=== PATIENT | male | born 1945 | race Caucasian/White ===

== ENCOUNTER 2017-04-16 01:14 | Observation (INO) ==
[2017-04-16] MEDS ORDERED: methylPREDNISolone 125 MG/2 ML VIAL IVP ONE (01:16)
[2017-04-16] MEDS ORDERED: Ipratropium/Albuterol Neb 3 ML IH ONE (01:16)
--- NOTE | 2017-04-16 01:23 | Emergency Department Note ---
Disposition Clinical Impression: Elevated troponin, Tobacco use COPD (chronic obstructive pulmonary disease) Qualifiers: COPD type: unspecified COPD Qualified Code(s): J44.9 - Chronic obstructive pulmonary disease, unspecified Disposition: Admitted As Inpatient Condition: Fair Referrals: Keke Romeo CNP [Primary Care Provider] - Forms: ED Satisfaction Letter Time of Disposition: 02:08 SOB HPI - General Chief Complaint: ED Shortness of Breath/Dyspnea Stated Complaint: alcides Time Seen by Provider: 04/16/17 01:16 Source: patient, EMS Mode of arrival: EMS Limitations: no limitations Nursing Notes Reviewed: Yes Vital Signs Reviewed: Yes - History of Present Illness 71-year-old male history of smoking, ACS presents for evaluation of dyspnea. Patient notes even increasing dyspnea over the past 2-3 days. Denies any fevers. Does note a productive cough for the past 2 weeks. Patient denies any chest pain. No abdominal pain. No nausea or vomiting. The patient states he does not have inhalers at home. Patient is not oxygen dependent home. Per EMS the patient was 82% on room air and improved to 91% with 1 breathing treatment. No oxygen at home. - Related Data Allergies Allergy/AdvReac Type Severity Reaction Status Date / Time No Known Allergies Allergy Verified 10/01/15 13:54 All systems ED: reviewed and negative except as stated. Constitutional: Reports: as per HPI. Denies: fever Eyes: Reports: as per HPI ENT ED: Reports: as per HPI Cardiovascular: Reports: as per HPI. Denies: chest pain Respiratory: Reports: as per HPI, cough, dyspnea, sputum production Gastrointestinal: Reports: as per HPI. Denies: abdominal pain, nausea, vomiting Genitourinary: Reports: as per HPI Musculoskeletal: Reports: as per HPI Integumentary: Reports: as per HPI Neurological: Reports: as per HPI Psychiatric: Reports: as per HPI Endocrine: Reports: as per HPI Past Medical History - Past Medical History Source: patient Medical history: Reports: hypertension, myocardial infarction Psychiatric history: Reports: no psych history - Social History Smoking Status: Current every day smoker Smokeless Tobacco Status: No Alcohol use: Reports: none Drug use: Reports: none Physical Exam - General Limitations: no limitations General appearance: alert, other (Moderate distress) - Head Head exam: atraumatic, normocephalic, normal inspection - Eye Eye exam: Present: normal appearance, PERRL, EOMI - ENT ENT exam: normal exam, normal oropharynx, mucous membranes moist - Neck Neck exam: Present: normal inspection, full ROM, trachea midline - Chest Chest inspection: Present: normal inspection, symmetric chest wall rise. Absent : tenderness - Respiratory Respiratory exam: Present: accessory muscle use, prolonged expiratory phase, other (Diffusely diminished breath sounds) - Cardiovascular Cardiovascular exam: Present: regular rate, normal rhythm. Absent: systolic murmur - Abdominal Exam Abdominal exam: Present: soft, Non-Tender - Extremities Exam Extremities exam: Present: normal inspection. Absent: pedal edema - Neurological Exam Neurological exam: Present: alert, oriented X3 - Skin Skin exam: Present: warm, dry, intact, normal color Course Course Narrative: Patient seen and examined. Patient appears to be in moderate distress. Patient will get breathing treatments basic labs and EKG. - Reevaluation(s) Reevaluation #1: Patient's seen and reevaluated. Patient's breathing has improved. Patient's noted to have high blood pressure states that he takes carvedilol to help manage his blood pressure. Time: 01:49 Reevaluation #2: Patient's blood pressure improved from initial set of vitals. Patient's blood pressure is 157/96. Patient resting comfortably. Time: 02:04 Reevaluation #3: Spoke with hospitalist who requested a blood culture. Time: 02:48 Vital Signs Temperature 99.7 F H 04/16/17 01:15 Pulse Rate 81 04/16/17 01:15 Respiratory Rate 24 04/16/17 01:15 Blood Pressure 203/127 04/16/17 01:15 O2 Sat by Pulse Oximetry 96 04/16/17 01:15 Temperature 99.7 F H 04/16/17 01:15 Pulse Rate 77 04/16/17 02:10 Respiratory Rate 20 04/16/17 02:10 Blood Pressure 157/96 04/16/17 02:10 O2 Sat by Pulse Oximetry 92 04/16/17 02:10 Oxygen Delivery Oxygen Delivery Nasal Cannula Shortness of Breath/Dyspnea - MDM Narrative Medical decision making narrative: 71-year-old male with a history of tobacco use presents for evaluation of dyspnea. Since symptoms are most likely consistent with a COPD exacerbation. Patient typically is our reduction home. Patient denies any fevers but does note dyspnea with productive cough. Patient was hypoxic with room air sat of 82 %. The patient did improve with oxygen supplementation as well as nebs. Patient's requiring 2-3 L to maintain saturations in the mid 90s. Patient was given triple nebs as well as IV steroids. Patient's chest x-ray shows findings consistent with COPD as well as a possible developing pneumonia in the left lung base. Given the patient's symptoms he will be admitted to the hospitalist for further respiratory support management. Patient was given IV Levaquin given the chest x-ray findings. Patient did have an elevated troponin which is likely related to the patient's increased work of breathing. Patient's been denying chest pain. Patient was given aspirin given the troponin elevation. - Lab Data Lab results reviewed: Yes I reviewed the patient's lab results. Result diagrams: 04/16/17 01:25 04/16/17 01:25 Lab Results 04/16/17 04/16/17 04/16/17 Range/Units 01:25 01:25 01:25 WBC 10.7 (4.3-11.1) K/mcL RBC 5.36 (4.19-5.50) M/mcL Hgb 16.8 (12.9-16.9) g/dL Hct 49.7 (37.5-50.1) % MCV 92.7 (83.0-100.0) fL MCH 31.3 (28.0-33.3) pg MCHC 33.8 (31.6-35.5) g/dL RDW 13.6 (11.5-14.5) % Plt Count 143 (140-400) K/mcL MPV 10.5 (9.4-12.4) fL Immature Gran % 0.5 (0-4) % Seg Neutrophils % 78.5 % Lymphocytes % 11.7 % Monocytes % 8.8 % Eosinophils % 0.1 % Basophils % 0.4 % Neutrophils # 8.4 (1.6-8.9) K/mcL Lymphocytes # 1.3 (0.6-4.6) K/mcL Monocytes # 0.9 (0.0-1.3) K/mcL Eosinophils # 0.0 (0.0-0.6) K/mcL Basophils # 0.0 (0.0-0.2) K/mcL Reactive Lymphocytes Present A (Not Present) Platelet Estimate Normal (Normal) Large Platelets Present A (Not Present) Sodium 133 L (136-145) mEq/L Potassium 4.2 (3.5-5.1) mEq/L Chloride 100 (98-107) mEq/L Carbon Dioxide 24 (23-29) mEq/L BUN 28 H (8-23) mg/dL Creatinine 1.27 (0.70-1.30) mg/dL Est GFR ( Amer) > 60 (> 60) Est GFR (Non-Af Amer) 56 L (> 60) BUN/Creatinine Ratio 22 (6-26) Glucose 140 H (70-105) mg/dL Calculated Osmolality 284 (280-300) Calcium 8.8 (8.6-10.3) mg/dL Troponin I 0.04 H* (< 0.04) ng/mL B-Natriuretic Peptide (Less than 100) pg/mL 04/16/17 Range/Units 01:25 WBC (4.3-11.1) K/mcL RBC (4.19-5.50) M/mcL Hgb (12.9-16.9) g/dL Hct (37.5-50.1) % MCV (83.0-100.0) fL MCH (28.0-33.3) pg MCHC (31.6-35.5) g/dL RDW (11.5-14.5) % Plt Count (140-400) K/mcL MPV (9.4-12.4) fL Immature Gran % (0-4) % Seg Neutrophils % % Lymphocytes % % Monocytes % % Eosinophils % % Basophils % % Neutrophils # (1.6-8.9) K/mcL Lymphocytes # (0.6-4.6) K/mcL Monocytes # (0.0-1.3) K/mcL Eosinophils # (0.0-0.6) K/mcL Basophils # (0.0-0.2) K/mcL Reactive Lymphocytes (Not Present) Platelet Estimate (Normal) Large Platelets (Not Present) Sodium (136-145) mEq/L Potassium (3.5-5.1) mEq/L Chloride (98-107) mEq/L Carbon Dioxide (23-29) mEq/L BUN (8-23) mg/dL Creatinine (0.70-1.30) mg/dL Est GFR ( Amer) (> 60) Est GFR (Non-Af Amer) (> 60) BUN/Creatinine Ratio (6-26) Glucose (70-105) mg/dL Calculated Osmolality (280-300) Calcium (8.6-10.3) mg/dL Troponin I (< 0.04) ng/mL B-Natriuretic Peptide 409 H (Less than 100) pg/mL - Radiology Data Radiology results reviewed: Yes I reviewed the patient's radiology results. Chest X-Ray 04/16/17 01:16 IMPRESSION: Emphysema with features of smoking-related obstructive small airways disease. Patchy opacities at the left lung base could reflect developing pneumonia or aspiration. D/ / Faustino De Oliveira / Faustino De Oliveira Interpreting Provider: Faustino De Oliveira - EKG Data EKG attestation: Yes I reviewed and interpreted this EKG. EKG shows normal: Reports: sinus rhythm Rate: Reports: normal Rhythm: Reports: NSR [place]/QRS: Reports: normal Voltage: Reports: increased voltage throughout Q waves: Reports: v1 T wave inversions noted in: Reports: II, III, aVF Interpretation: Reports: no acute changes, unchanged when compared to prior tracing (date) S.B.AJacey - [place] Situation: Demographics Background: Presenting Complaint Assessment: Vital Signs, Course and respsone to treatment, Patient/Family Expectation Recommendation: Barrier(s) to disposition, Recommendation based on pending studies, treatments, or consults S.B.AJacey Report Given to: Dr. Linda Mohamud Repor Time: 02:48 Attestation Statement - Attestation Attestation: I, Troy Zapata MD, personally evaluated this patient and discussed their management with the resident physician. I reviewed the resident's note and agree with the documented findings, medical decision making, and plan of care. 71-year-old male presents to the emergency department with a complaint of an increasing cough with clear sputum production over the past few weeks. Over the past several days he has had increasing shortness of breath. He has not noticed any fever. No chest pain. Patient is a smoker and continues to smoke. He states he has never actually been diagnosed with COPD but assumes that he has it. He is not on any home oxygen, nebulizers or inhalers. On examination patient is a well-developed thin elderly male in moderate rest or distress on arrival. He is alert and oriented 3. There is no cyanosis or diaphoresis. Breath sounds are decreased bilaterally. No definite wheezes. I initially thought I heard a few rales in the left base but on reexamination these have cleared. Heart is regular rate and rhythm. Abdomen is soft and nontender with normal bowel sounds. No pedal edema. Labs reviewed. Chest x-ray shows patchy opacities at the left lung base which could reflect developing pneumonia or aspiration. EKG shows a normal sinus rhythm with a heart rate of 83, no acute ST segment elevation or depression noted. The hospitalist, Dr. Mckeon, was consulted and accepted admission of the patient.
[2017-04-16 01:33] LABS: Basophils % 0.4 %; Eosinophils % 0.1 %; Hematocrit 49.7 % (37.5-50.1); Hemoglobin 16.8 g/dL (12.9-16.9); Immature Granulocytes % 0.5 % (0-4); Lymphocytes # 1.3 K/mcL (0.6-4.6); Lymphocytes % 11.7 %; Mean Corpuscular HGB Conc 33.8 g/dL (31.6-35.5); Mean Corpuscular Hemoglobin 31.3 pg (28.0-33.3); Mean Corpuscular Volume 92.7 fL (83.0-100.0); Mean Platelet Volume 10.5 fL (9.4-12.4); Monocytes # 0.9 K/mcL (0.0-1.3); Monocytes % 8.8 %; Neutrophils # 8.4 K/mcL (1.6-8.9); Platelet Count 143 K/mcL (140-400); Red Blood Count 5.36 M/mcL (4.19-5.50); Red Cell Distribution Width 13.6 % (11.5-14.5); Segmented Neutrophils % 78.5 %
[2017-04-16 01:47] LABS: BUN/Creatinine Ratio 22 (6-26); Blood Urea Nitrogen 28 mg/dL (8-23); Calcium 8.8 mg/dL (8.6-10.3); Carbon Dioxide 24 mEq/L (23-29); Chloride 100 mEq/L (98-107); Glucose 140 mg/dL (70-105); Osmolality,Calculated 284 (280-300); Potassium 4.2 mEq/L (3.5-5.1); Sodium 133 mEq/L (136-145); eGFR For African Americans > 60 (> 60); eGFR For Non-African Americans 56 (> 60)
[2017-04-16 01:52] LABS: Large Platelets Present (Not Present); Platelet Estimate Normal (Normal); Reactive Lymphocytes Present (Not Present)
[2017-04-16] MEDS ORDERED: Aspirin 81 MG TAB.CHEW PO ONE (02:00)
[2017-04-16] MEDS ORDERED: Levofloxacin 750 MG/150 ML 750 MG/150 ML BAG IVPB ONE (02:01)
--- NOTE | 2017-04-16 03:57 | Internal Med History&Physical ---
Addendum entered and electronically signed by Sonu Dale DO 04/16/17 06:14: Diagnosis (3) should read "Respiratory Distress" rather than ARDS Original Note: <Sonu Dale - Last Filed: 04/16/17 05:24> Date of Encounter: 04/16/17 Time of Encounter: 03:53 Assessment and Plan (1) Community acquired pneumonia Current visit: Yes Status: Acute Possible early lobar pneumonia based on X-ray findings Will obtain respiratory illness panel Neb treatments ordered PRN; patient on supplementary O2 with continuous pulse ox monitoring Will order Mucinex and start solumedrol PO Levaquin 750Mg for total of 5-7 days Qualifiers: Laterality: unspecified laterality Qualified Code(s): J18.9 - Pneumonia, unspecified organism (2) COPD exacerbation Current visit: Yes Status: Acute based on smoking history, present illness, and exam findings, likely underlying COPD with no formal diagnosis plans as above (3) Acute respiratory distress syndrome in adult Current visit: Yes Status: Acute Due to COPD Exacerbation / CAP Plan as above (4) Elevated brain natriuretic peptide (BNP) level Current visit: Yes Status: Acute Based on cardiac history and acute shortness of air, may be some component of current/underlying CHF Will obtain 2D ECHO to assess LVEF, wall function, and valve function Hold diuresis for now as CHF does not seem to be the primary stimulus for presenting symptoms Will start on appropriate diet (5) Elevated troponin Current visit: Yes Status: Acute No chest pain or symptomatic ACS equivalents Borderline elevation, likely demand ischemia will recheck troponin at 0800 (6) Hyperglycemia Current visit: Yes Status: Acute Mild -- 140 possible elevation secondary to steroid rx will obtain A1C to assess for / rule out possible underlying DM (7) Tobacco use Current visit: Yes Status: Acute Extensive history, but patient states smokes 3 cigarettes a day Offer patch if needed (8) DVT prophylaxis Current visit: Yes Status: Acute Ambulate with assistance Subq heparin Internal Medicine - H&P: HPI Admitted From: Emergency Dept Plans for Post Hospital Care: Home History of present illness: Mr. Bianchi is a 71 year old male admitted by the emergency department for acute pulmonary illness likely exacerbation of COPD. Of note, patient does not have any known history of COPD, however, has extensive history of tobacco use citing 30 to 40 years of 2 pack a day smoking habit. Over the past 2 weeks, patient states he is coughing more than usual and producing clear to off-white sputum. Patient called the ambulance and came to the ER today after he is having a hard time walking from his living room to his kitchen becoming extremely short of breath while walking. Per EMS, desaturated to 82% prior to initial breathing treatment which immediately improved to the low 90s. Patient does have history of CAD and follows with [facility]; states had OK in 2010 with cath, but no stent. Denies any knowledge of diagnosed lung pathology or CHF. Patient has not had any headaches, lightheadedness, fevers, chills, sweats, retrosternal chest pain, nausea, vomiting, leg swelling, or any skin color change. Denies sick contacts; lives alone. Past Med Surg Social Fam HX - Past Medical History Attestation: Yes The following information was validated with the patient. Source: patient Medical history: COPD (Never formally diagnosed), hypertension, myocardial infarction (2010) Psychiatric history: anxiety, depression - Social History Smoking Status: Current every day smoker Packs per day: 1 Smokeless Tobacco Status: No Alcohol use: none Drug use: none Internal Medicine - H&P: Meds Aspirin [Lo-Dose Aspirin EC] 81 mg PO DAILY 04/16/17 [History] Atorvastatin [Lipitor] 40 mg PO HS 04/16/17 [History] Carvedilol [Coreg] 6.25 mg PO BIDWM 04/16/17 [History] Escitalopram [Lexapro] 5 mg PO DAILY 04/16/17 [History] Montelukast [Singulair] 10 mg PO DAILY 04/16/17 [History] Nitroglycerin [Nitrostat] 0.4 mg SL PRN PRN 04/16/17 [History] Triamcinolone Acetonide [Nasacort] 10.8 ml NS DAILY 04/16/17 [History] 3 Allergy/AdvReac Type Severity Reaction Status Date / Time No Known Allergies Allergy Verified 10/01/15 13:54 All Systems PM: A 10-system review of systems was performed and is negative for pertinent findings except as documented above in the HPI. Review of systems: As per HPI - Constitutional Vitals: Temp Pulse Resp BP Pulse Ox 98.5 F 73 19 116/69 92 04/16/17 03:46 04/16/17 03:46 04/16/17 03:46 04/16/17 03:46 04/16/17 03:46 Exam: CONSTITUTIONAL: Alert and oriented X3, well-nourished, well appearing, in no apparent distress HEAD: Normocephalic; atraumatic. EYES: PERRL, no scleral icterus, no drainage, no conjunctival injection NOSE: The nose is normal in appearance without rhinorrhea Oropharynx: pink/moist, no tonsillar edema/erythema/exudates RESP: conversational without any apparent respiratory distress on 2 L via nasal cannula. Expiratory wheezes heard throughout lung dailey. No stridor, rales, rhonchi heard. CARD: heart sounds distant, but regular without murmurs or gallops ABD: grossly normal, soft, non-tender SKIN: normal appearance, no pallor/diaphoresis,mottling,jaundice,cyanosis EXT: no significant edema; DP pulses 2+ and symmetrical PSYCH: appropriate mood/affect Internal Med - H&P Results - Labs CBC & Chem 7: 04/16/17 01:25 04/16/17 01:25 <Aisha Mckeon - Last Filed: 04/16/17 06:26> Date of Encounter: 04/16/17 Internal Medicine - H&P: HPI History of present illness: Mr. Bianchi is a 71 year old male All Systems PM: A 10-system review of systems was performed and is negative for pertinent findings except as documented above in the HPI. - Constitutional Vitals: Temp Pulse Resp BP Pulse Ox 98.5 F 73 19 116/69 92 04/16/17 03:46 04/16/17 03:46 04/16/17 03:46 04/16/17 03:46 04/16/17 03:46 Internal Med - H&P Results - Labs CBC & Chem 7: 04/16/17 01:25 04/16/17 01:25 - Attending Attestation Patient is a 71y/o male admitted for acute respiratory distress secondary to PNA and COPD exacerbation Pt independently seen and examined at bedside. Reports of feeling better since hospitalization. Currently saturating well on nasal cannula. Reports of not being on home oxygen. Pt has never been diagnosed with COPD, however has been smoking for over 40years and stopped smoking a couple of days ago because of respiratory distress. Will continue IV steroids, abx, bronchodilator support Consider pulmonology referral upon discharge and discharging the patient on bronchodilator/O2 support Mild elevation in TNI likely demand ischemia, will obtain 2D echo and trend TNI Smoking cessation counseling provided Case discussed with Resident physician Sonu Dale, I agree with his documented findings, assessment, and plan except as listed above.
[2017-04-16] MEDS ORDERED: Ondansetron ODT 4 MG TAB.RAPDIS SL PRN (04:17)
[2017-04-16] MEDS ORDERED: Acetaminophen 325 MG TABLET PO PRN (04:17)
[2017-04-16] MEDS ORDERED: Naloxone 0.4 MG/ML INJ IVP PRN (04:17)
[2017-04-16] MEDS ORDERED: Albuterol 2.5 MG/3 ML NEBULIZER IH PRN (04:39)
[2017-04-16] MEDS ORDERED: Ipratropium/Albuterol Neb 3 ML IH PRN (04:39)
[2017-04-16] MEDS ORDERED: Nitroglycerin 0.4 MG TAB.SUBL SL PRN (04:55)
[2017-04-16] MEDS: *HR* Heparin 5,000 UNIT/ML VIAL SQ SCH ×2 (05:59→16:53)
[2017-04-16 08:43] LABS: Hemoglobin A1C 5.5 %
[2017-04-16] MEDS: MethylPREDNISolone 40 MG/ML VIAL IVP SCH ×2 (09:46→16:54)
[2017-04-16] MEDS: Aspirin Enteric Coated 81 MG Tablet PO SCH (09:46)
[2017-04-16] MEDS: Fluticasone Propionate Nasal 50 MCG/SPRAY BOTTLE NS SCH (09:48)
--- NOTE | 2017-04-16 13:58 | Electrocardiograph Report ---
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
--- NOTE | 2017-04-16 17:25 | Internal Med Progress Note ---
Date of Encounter: 04/16/17 Time of Encounter: 11:10 - Assessment and plan (1) Community acquired pneumonia Current Visit: Yes Status: Acute Assessment and plan: Patient presents with to 3 week history of dyspnea on exertion. It became worse last night when he states he was unable to catch his breath and came to the emergency department. He denies subjective fever or chills at home. Productive cough with clear sputum noted. Patient does not worsen to here, he is requiring supplemental oxygen secondary to the pneumonia, possibly CHF exacerbation. wheezing heard in the posterior lung dailey. Patient appears to have mild conversational dyspnea. Patient has been placed on Levaquin 750 mg by mouth daily for 5-7 days. Continue Mucinex and start Solu-Medrol IV. DuoNeb and oxygen as needed to maintain sats greater than 92%. Chest X-Ray 04/16/17 01:16 IMPRESSION: Emphysema with features of smoking-related obstructive small airways disease. Patchy opacities at the left lung base could reflect developing pneumonia or aspiration. D/ / Faustino De Oliveira / Faustino De Oliveira Interpreting Provider: Faustino De Oliveira Echocardiogram 04/16/17 04:57 Impressions: LVEF 35%. Moderate global LV systolic dysfunction. Mild left ventricular diastolic dysfunction. Mildly dilated RV with moderate to severely reduced function. Mild mitral regurgitation. Mild tricuspid regurgitation. Mild pulmonary hypertension. Qualifiers: Laterality: unspecified laterality Qualified Code(s): J18.9 - Pneumonia, unspecified organism (2) Acute respiratory failure Current Visit: Yes Status: Acute Assessment and plan: Patient requiring supplemental oxygen secondary to a community acquired pneumonia, COPD exacerbation. Continue oxygen as needed to maintain sats greater than 92%. Patient may need to qualify for O2 at home. Qualifiers: Respiratory failure complication: unspecified whether with hypoxia or hypercapnia Qualified Code(s): J96.00 - Acute respiratory failure, unspecified whether with hypoxia or hypercapnia (3) Tobacco use Current Visit: Yes Status: Chronic Assessment and plan: Patient reports he is trying to quit smoking. Smoking cessation counseling has been completed. Patient denies need for nicotine replacement therapy, nicotine patch ordered when necessary. (4) Elevated brain natriuretic peptide (BNP) level Current Visit: Yes Status: Acute Assessment and plan: Prior [place] with stent placement in 2010. Patient denies known history of congestive heart failure. Lungs with wheezing in posterior lung dailey, no Rales noted. No peripheral edema noted. Echocardiogram today showed LVEF of 35% with moderate global LV systolic function, mild LV DD, mildly dilated RV with moderate to severely reduced function, mild MR, mild TR, mild pulmonary hypertension. Cardiology consultation made late today. Will be seen by cardiology tomorrow. I appreciate the recommendation for medical management. Patient is currently on aspirin, Lipitor, Coreg 6.25 mg by mouth twice a day. (5) COPD exacerbation Current Visit: Yes Status: Acute Assessment and plan: Patient has no formal diagnosis of COPD in the past. Patient with history of smoking and present illness. Plan as above. (6) DVT prophylaxis Current Visit: Yes Status: Acute Assessment and plan: Heparin subcutaneous daily. - Time Spent With Patient less than 15 minutes - Subjective Interval history: Patient was seen and evaluated 11:10 AM. He is alert, oriented, answers questions appropriately. He reports increasing dyspnea on exertion for 2-3 weeks. Became worse last night prior to presentation to emergency room. Patient does not wear supplemental oxygen at home, he is requiring supplemental here. He is aware that he may need to qualify and is agreeable. Patient states he has been smoking 3-4 cigarettes daily and has not had a cigarette for 3-4 days. He will put a productive cough with clear sputum, denies fever or chills, chest pain. No headache or dizziness. No nausea vomiting diarrhea or abdominal pain. He denies any known history of congestive heart failure but does admit to [place] in 2010 with stents placed. - Constitutional Vitals: Temp Pulse Resp BP Pulse Ox 98.1 F 64 16 111/68 91 04/16/17 16:03 04/16/17 16:03 04/16/17 16:03 04/16/17 16:03 04/16/17 16:03 General appearance: Present: cooperative, mild distress, A&O X 3, pleasant, answers questions appropriately - Head Head exam: Present: atraumatic, normal inspection, normocephalic - Eye Eye exam: Present: normal appearance, conjuntiva pink, sclera anicteric Pupils: Present: PERRL - Neck Neck exam general surgery: Present: supple, trachea midline. Absent: lymphadenopathy, tenderness - Respiratory Respiratory exam: Present: wheezes. Absent: accessory muscle use, CTAB, rales, rhonchi - Cardiovascular Cardiovascular exam: Present: RRR, +S1, +S2. Absent: diastolic murmur, gallop, rubs, systolic murmur - GI/Abdominal GI/Abdominal exam: Present: normal bowel sounds, soft. Absent: distended, tenderness - Extremities Exam Extremities exam: Present: normal capillary refill, normal inspection, warm, radial pulses palpable and symmetrical. Absent: calf tenderness, cyanotic, pedal edema, tenderness - Neurological Exam Neurological exam: Present: alert, oriented X3, strengths equal and symetr throughout. Absent: altered, facial droop, speech deficit - Skin Skin exam: Present: dry, intact, normal color, warm. Absent: rash Internal Medicine: Result - Labs CBC & Chem 7: 04/16/17 01:25 04/16/17 01:25 Labs: Cardiac Enzymes 04/16/17 04/16/17 Range/Units 07:38 14:15 Troponin I 0.04 H* 0.03 (< 0.04) ng/mL - Impressions Impressions Echocardiogram 04/16/17 04:57 Impressions: LVEF 35%. Moderate global LV systolic dysfunction. Mild left ventricular diastolic dysfunction. Mildly dilated RV with moderate to severely reduced function. Mild mitral regurgitation. Mild tricuspid regurgitation. Mild pulmonary hypertension. Left Ventricular Wall Motion: Rest Echo Findings The apex, apical inferior, mid inferior, basal inferior, apical anterior, mid anterior, basal anterior, apical septal, mid inferior septal, basal inferior septal, apical lateral, mid anterior lateral, basal anterior lateral, mid anterior septal, mid inferior lateral, basal anterior septal and basal inferior lateral davenport were hypokinetic. Findings: Study Quality * Technically adequate exam. ECG Findings * Sinus rhythm with BBB. Left Ventricle * LVEF 35%. * Mild left ventricular diastolic dysfunction. * Normal LV size and wall thickness. Right Ventricle * Mildly dilated RV with moderate to severely reduced function. Left Atrium * Normal left atrial size. Right Atrium * Normal right atrial size. Aortic Valve * No aortic regurgitation. * Aortic valve not well visualized. * No aortic stenosis. Mitral Valve * No mitral regurgitation. * No mitral stenosis. * Mild mitral regurgitation. * Mild mitral annular calcification Tricuspid Valve * Normal tricuspid valve structure. * Mild tricuspid regurgitation. * Estimated RA pressure is 8 mmHg. * Estimated RVSP is 40 mmHg. * Mild pulmonary hypertension. Pulmonic Valve * Pulmonic valve is not well visualized. * No pulmonic stenosis. * No pulmonic regurgitation. Pulmonary Artery * Pulmonary artery not well visualized. Aorta * Normally sized aortic root. Pericardium * There is no pericardial effusion present. Interatrial Septum * No evidence of PFO by color Doppler. IVC * The IVC is not dilated. * < 50% respiratory change. Consult Discharge Plan - Plan Referrals: Keke Romoe, [employer] DEVELOPER [Primary Care Provider] -
[2017-04-16] MEDS ORDERED: Nicotine 14 MG PATCH.TD24 TD PRN (17:33)
[2017-04-17 01:48] LABS: Adenovirus Not Detected (Not Detect); Bordetella Pertussis Not Detected (Not Detect); Chlamydophila pneumoniae Not Detected (Not Detect); Coronavirus 229E Not Detected (Not Detect); Coronavirus HKU1 Not Detected (Not Detect); Coronavirus NL63 Not Detected (Not Detect); Coronavirus OC43 Not Detected (Not Detect); Human Metapneumovirus Not Detected (Not Detect); Human Rhinovirus/Enterovirus Not Detected (Not Detect); Influenza A Subtype 2009 H1 Not Detected (Not Detect); Influenza A Untypeable Not Detected (Not Detect); Influenza B Not Detected (Not Detect); Mycoplasma pneumoniae Not Detected (Not Detect); Parainfluenza Virus 1 Not Detected (Not Detect); Parainfluenza Virus 2 Not Detected (Not Detect); Parainfluenza Virus 3 Not Detected (Not Detect); Parainfluenza Virus 4 Not Detected (Not Detect); Respiratory Syncytial Virus Not Detected (Not Detect)
[2017-04-17] MEDS: MethylPREDNISolone 40 MG/ML VIAL IVP SCH ×2 (04:53→17:57)
[2017-04-17] MEDS: *HR* Heparin 5,000 UNIT/ML VIAL SQ SCH ×2 (04:58→17:57)
[2017-04-17] MEDS: Aspirin Enteric Coated 81 MG Tablet PO SCH (08:59)
[2017-04-17] MEDS: Fluticasone Propionate Nasal 50 MCG/SPRAY BOTTLE NS SCH (09:00)
[2017-04-17] MEDS ORDERED: levoFLOXacin 750 MG TABLET PO SCH (09:00)
--- NOTE | 2017-04-17 17:44 | Internal Med Progress Note ---
Date of Encounter: 04/17/17 Time of Encounter: 11:40 - Assessment and plan (1) Community acquired pneumonia Current Visit: Yes Status: Acute Assessment and plan: Patient presents with to 3 week history of dyspnea on exertion. It became worse last night when he states he was unable to catch his breath and came to the emergency department. He denies subjective fever or chills at home. Productive cough with clear sputum noted. Patient does not wear home O2, he is requiring supplemental oxygen secondary to the pneumonia, possibly CHF exacerbation. Patient qualified home 02. Respirtory status seems to be improved today. No wheezing, stridor, rales, or respiratory distress. Patient has been placed on Levaquin 750 mg by mouth daily for 5-7 days. Continue Mucinex and start Solu-Medrol IV. DuoNeb and oxygen as needed to maintain sats greater than 92%. Chest X-Ray 04/16/17 01:16 IMPRESSION: Emphysema with features of smoking-related obstructive small airways disease. Patchy opacities at the left lung base could reflect developing pneumonia or aspiration. D/ / Faustino De Oliveira / Faustino De Oliveira Interpreting Provider: Faustino De Oliveira Echocardiogram 04/16/17 04:57 Impressions: LVEF 35%. Moderate global LV systolic dysfunction. Mild left ventricular diastolic dysfunction. Mildly dilated RV with moderate to severely reduced function. Mild mitral regurgitation. Mild tricuspid regurgitation. Mild pulmonary hypertension. Qualifiers: Laterality: unspecified laterality Qualified Code(s): J18.9 - Pneumonia, unspecified organism (2) Acute respiratory failure Current Visit: Yes Status: Acute Assessment and plan: Patient requiring supplemental oxygen secondary to a community acquired pneumonia, COPD exacerbation. Continue oxygen as needed to maintain sats greater than 92%. Patient has qualified for home O2. Qualifiers: Respiratory failure complication: unspecified whether with hypoxia or hypercapnia Qualified Code(s): J96.00 - Acute respiratory failure, unspecified whether with hypoxia or hypercapnia (3) Tobacco use Current Visit: Yes Status: Chronic Assessment and plan: Patient reports he is trying to quit smoking. Smoking cessation counseling has been completed. Patient denies need for nicotine replacement therapy, nicotine patch ordered when necessary. (4) Elevated brain natriuretic peptide (BNP) level Current Visit: Yes Status: Acute Assessment and plan: Prior [place] with stent placement in 2010. Patient denies known history of congestive heart failure. Lungs with wheezing in posterior lung dailey, no Rales noted. No peripheral edema noted. Echocardiogram today showed LVEF of 35% with moderate global LV systolic function, mild LV DD, mildly dilated RV with moderate to severely reduced function, mild MR, mild TR, mild pulmonary hypertension. Cardiology consultation made late today. I spoke with cardiology SPORTS TEAM MANAGER this morning, she states that EF is stable and unchanged from prior. Patient will need to follow up with cardiology in the office. Patient is currently on aspirin, Lipitor, Coreg 6.25 mg by mouth twice a day. (5) COPD exacerbation Current Visit: Yes Status: Acute Assessment and plan: Patient has no formal diagnosis of COPD in the past. Patient with history of smoking and present illness. Chest x-ray indicates patient has emphysematous changes. Plan as above. (6) DVT prophylaxis Current Visit: Yes Status: Acute Assessment and plan: Heparin subcutaneous twice daily. - Time Spent With Patient less than 15 minutes - Subjective Interval history: Patient was seen and evaluated 11:40 AM. He is alert, oriented, answers questions appropriately, agitated. Patient qualified for home O2. He reports a productive cough with clear sputum, denies fever or chills, chest pain. No headache or dizziness. No nausea vomiting diarrhea or abdominal pain. - Constitutional Vitals: Temp Pulse Resp BP Pulse Ox 97.4 F L 61 16 148/85 90 04/17/17 15:48 04/17/17 15:48 04/17/17 15:48 04/17/17 15:48 04/17/17 15:48 General appearance: Present: cooperative, mild distress, A&O X 3, pleasant, no acute distress, answers questions appropriately - Head Head exam: Present: atraumatic, normal inspection, normocephalic - Eye Eye exam: Present: normal appearance, conjuntiva pink, sclera anicteric - Neck Neck exam general surgery: Present: supple, trachea midline. Absent: lymphadenopathy, tenderness - Respiratory Respiratory exam: Present: decreased breath sounds, CTAB. Absent: accessory muscle use, chest wall tenderness, rales, respiratory distress, rhonchi, wheezes - Cardiovascular Cardiovascular exam: Present: RRR, +S1, +S2. Absent: diastolic murmur, gallop, rubs, systolic murmur - GI/Abdominal GI/Abdominal exam: Present: normal bowel sounds, soft. Absent: distended, hepatomegaly, tenderness - Extremities Exam Extremities exam: Present: normal capillary refill, normal inspection, warm, radial pulses palpable and symmetrical. Absent: calf tenderness, cyanotic, pedal edema, tenderness - Neurological Exam Neurological exam: Present: alert, oriented X3, no focal deficits. Absent: facial droop, speech deficit - Skin Skin exam: Present: dry, intact, normal color, warm. Absent: rash Internal Medicine: Result - Labs CBC & Chem 7: 04/16/17 01:25 04/16/17 01:25 Consult Discharge Plan - Plan Referrals: Keke Romeo CNP [Primary Care Provider] -
[2017-04-18] MEDS: *HR* Heparin 5,000 UNIT/ML VIAL SQ SCH (05:58)
[2017-04-18] MEDS: MethylPREDNISolone 40 MG/ML VIAL IVP SCH (05:59)
[2017-04-18] MEDS: Aspirin Enteric Coated 81 MG Tablet PO SCH (08:30)
[2017-04-18] MEDS: Fluticasone Propionate Nasal 50 MCG/SPRAY BOTTLE NS SCH (08:31)
[2017-04-18 15:37] VITALS: BP 165/89
--- NOTE | 2017-04-18 15:53 | Discharge Summary ---
Date of Encounter: 04/18/17 Time of Encounter: 10:35 - Discharge Diagnosis (1) Community acquired pneumonia Priority: Primary Status: Acute Comments: Patient presents with to 3 week history of dyspnea on exertion. It became worse last night when he states he was unable to catch his breath and came to the emergency department. He denies subjective fever or chills at home. Productive cough with clear sputum noted. Patient does not wear home O2, he is requiring supplemental oxygen secondary to the pneumonia, possibly CHF exacerbation. Patient qualified home 02. Respirtory status seems to be improved today. No wheezing, stridor, rales, or respiratory distress. Patient has been placed on Levaquin 750 mg by mouth daily for 5-7 days. Continue Mucinex and start Prednisone taper. Chest X-Ray 04/16/17 01:16 IMPRESSION: Emphysema with features of smoking-related obstructive small airways disease. Patchy opacities at the left lung base could reflect developing pneumonia or aspiration. D/ / Faustino De Oliveira / Faustino De Oliveira Interpreting Provider: Faustino De Oliveira Qualifiers: Laterality: unspecified laterality Qualified Code(s): J18.9 - Pneumonia, unspecified organism (2) Acute respiratory failure Priority: Secondary Status: Acute Comments: Patient requiring supplemental oxygen secondary to a community acquired pneumonia, COPD exacerbation. Continue oxygen as needed to maintain sats greater than 92%. Patient has qualified for home O2. Qualifiers: Respiratory failure complication: unspecified whether with hypoxia or hypercapnia Qualified Code(s): J96.00 - Acute respiratory failure, unspecified whether with hypoxia or hypercapnia (3) Tobacco use Priority: Secondary Status: Chronic Comments: Patient reports that he would like to stop smoking. He has declined any form of nicotine replacement therapy or smoking cessation tools. I have encouraged him when he returns home to not smoke with his oxygen, dangers explained. Verbalized understanding. (4) Elevated brain natriuretic peptide (BNP) level Priority: Secondary Status: Acute Comments: Prior [place] with stent placement in 2010. Patient denies known history of congestive heart failure. Lungs with wheezing in posterior lung dailey, no Rales noted. No peripheral edema noted. Echocardiogram today showed LVEF of 35% with moderate global LV systolic function, mild LV DD, mildly dilated RV with moderate to severely reduced function, mild MR, mild TR, mild pulmonary hypertension. Cardiology consultation made late today. I spoke with cardiology PHARMACY CLERK this morning, she states that EF is stable and unchanged from prior. Patient will need to follow up with cardiology in the office. Patient is currently on aspirin, Lipitor, Coreg 6.25 mg by mouth twice a day. Patient does not appear to have acute exacerbation of mixed systolic and diastolic chronic CHF. (5) COPD exacerbation Priority: Secondary Status: Chronic Comments: She has never had a formal diagnosis of COPD in the past. Patient is a chronic smoker. Chest x-ray indicated emphysematous changes in the lungs. Plan as above (6) DVT prophylaxis Priority: Secondary Status: Acute Comments: Heparin subcutaneous twice a day. (7) Physical deconditioning Priority: Secondary Status: Acute Comments: Patient's daughter verbalize concern the patient was unable to walk at home. He was ambulated in the hallway and did not appear to have any difficulty, momentarily when he first got up his gait was unsteady. He will be sent home with a walker. He reports that he does not want home health, he does not want to go to rehabilitation, and he has declined evaluation by PT/OT. Prescription for walker was given to patient. Company who delivers home O2 will bring a walker, as well. - Discharge Medications Prescriptions: GuaiFENesin ER [Mucinex] 600 mg PO BID PRN #60 tbbp.12hr PRN Reason: Cough levoFLOXacin [Levaquin] 750 mg PO Q48H #3 tablet Nicotine Patch [Nicoderm] 14 mg TD DAILY #30 patch.td24 predniSONE [PredniSONE] 10 mg PO DAILY #31 tablet Home Medications: Aspirin [Lo-Dose Aspirin EC] 81 mg PO DAILY 04/16/17 [History] Atorvastatin [Lipitor] 40 mg PO HS 04/16/17 [History] Carvedilol [Coreg] 6.25 mg PO BIDWM 04/16/17 [History] Escitalopram [Lexapro] 5 mg PO DAILY 04/16/17 [History] Montelukast [Singulair] 10 mg PO DAILY 04/16/17 [History] Nitroglycerin [Nitrostat] 0.4 mg SL PRN PRN 04/16/17 [History] Triamcinolone Acetonide [Nasacort] 10.8 ml NS DAILY 04/16/17 [History] GuaiFENesin ER [Mucinex] 600 mg PO BID PRN #60 tbbp.12hr 04/18/17 [Rx] Nicotine Patch [Nicoderm] 14 mg TD DAILY #30 patch.td24 04/18/17 [Rx] levoFLOXacin [Levaquin] 750 mg PO Q48H #3 tablet 04/18/17 [Rx] predniSONE [PredniSONE] 10 mg PO DAILY #31 tablet 04/18/17 [Rx] Allergies/Adverse Reactions: 3 Allergy/AdvReac Type Severity Reaction Status Date / Time No Known Allergies Allergy Verified 10/01/15 13:54 Procedures/tests Complete & Pending: Procedures Performed prior 72 hours Category Date Time Status EV echocardiogram Stat Y 04/16/17 04:57 Completed Date of admission: 04/16/17 03:01 Primary care physician: Keke Romeo CNP Consults: 04/17/17 19:19 Consult to Accounting Systems Manager [CONS] Routine Reason for SW Consult: home oxygen Discharging clinician: Jenae Chow Anticipated date of discharge: 04/18/17 - Patient Status Disposition: Home, Self-Care Condition: Good Functional capacity at discharge: uses cane/walker Overall status at discharge: patient is progressing back to baseline - Discharge Instructions Instructions: Using Oxygen at Home (DC), Chronic Obstructive Pulmonary Disease (DC) Follow Up With: Keke Romeo CNP [Primary Care Provider] - 04/24/17 1:30 pm Additional Instructions: Follow up with your primary care provider in the next week for a checkup. Taking no new medications as directed. Resume your normal home medications. Return to the emergency department as needed for any other problems or concerns , or if your symptoms return or worsen. Return to your normal activities and diet as tolerated. - Diet and Activity Activity: increase activity as tolerated Diet: advance to your usual diet Hospital course: Mr. Bianchi is a 71 year old male with past medical history of tobacco use, diastolic dysfunction with low EF. Patient presented to the emergency department with increasing shortness of breath. He was treated for community- acquired pneumonia as well as diagnosed with COPD and acute respiratory failure. He improved over his stay in the hospital and was treated with by mouth Levaquin every 48 hours, IV Solu-Medrol, duo nebs. Patient reports that he is still smoking, although frequency and amount have decreased. Patient was given NicoDerm patches for home. He declined any smoking cessation materials her medications here. Patient qualified for home O2 at 2 L. He will be sent home with prescriptions for a walker for physical deconditioning, home O2 and supplies, Levaquin 750 mg by mouth every 48 hours, Mucinex, and a prednisone taper. Patient's daughter verbalized concerned that her father does not walk well, he was ambulated in the hallway with nursing staff and appeared to do well , although he could benefit from a walker at home. He has declined evaluation by PT/OT, does not want home health or any chemotherapy at home, as well as he does not want to go to a rehabilitation facility. This was discussed with daughter by primary nurse and she is okay with him going home with a walker. She is stable and appropriate for discharge. He has no leukocytosis or fever, labs are stable and within normal limits. Vitals are stable and within normal limits. Time spent discussing smoking cessation with patient: 3 to 10 minutes - Time Spent with Patient Total time spent providing and/or coordinating discharge services: Less than 30 minutes - Constitutional Vitals: Temp Pulse Resp BP Pulse Ox 97.8 F 63 16 165/89 91 04/18/17 15:36 04/18/17 15:36 04/18/17 15:36 04/18/17 15:36 04/18/17 15:36 General appearance: Present: cooperative, mild distress, A&O X 3, pleasant, no acute distress, answers questions appropriately - Head Head exam: Present: atraumatic, normal inspection, normocephalic - Eye Eye exam: Present: normal appearance, conjuntiva pink, sclera anicteric - Neck Neck exam general surgery: Present: supple, trachea midline. Absent: lymphadenopathy, tenderness - Respiratory Respiratory exam: Present: CTAB. Absent: accessory muscle use, rales, rhonchi, wheezes - Cardiovascular Cardiovascular exam: Present: RRR, +S1, +S2. Absent: diastolic murmur, gallop, rubs, systolic murmur - GI/Abdominal GI/Abdominal exam: Present: soft, no peritoneal signs. Absent: distended, hepatomegaly, tenderness - Extremities Exam Extremities exam: Present: normal capillary refill, normal inspection, warm, radial pulses palpable and symmetrical. Absent: calf tenderness, cyanotic, pedal edema, tenderness - Neurological Exam Neurological exam: Present: alert, oriented X3, no focal deficits. Absent: facial droop, speech deficit - Skin Skin exam: Present: dry, intact, normal color, warm. Absent: rash
== END 2017-04-18 17:00 | disposition home or self-care (01) ==
LOC: EMEROO 01:14 → 3BNU 01:14
PROVIDERS: ADMIT Internal Medicine; ATTEND Registered Nurse

== ENCOUNTER 2017-10-07 22:17 | Observation (INO) ==
[2017-10-07 23:15] LABS: Basophils # 0.1 K/mcL (0.0-0.2); Basophils % 1.2 %; Eosinophils # 0.2 K/mcL (0.0-0.6); Eosinophils % 2.5 %; Hematocrit 33.8 % (37.5-50.1); Hemoglobin 11.1 g/dL (12.9-16.9); Immature Granulocytes % 0.1 % (0-4); Lymphocytes # 1.9 K/mcL (0.6-4.6); Lymphocytes % 27.6 %; Mean Corpuscular HGB Conc 32.8 g/dL (31.6-35.5); Mean Corpuscular Hemoglobin 28.3 pg (28.0-33.3); Mean Corpuscular Volume 86.2 fL (83.0-100.0); Mean Platelet Volume 9.4 fL (9.4-12.4); Monocytes # 0.8 K/mcL (0.0-1.3); Monocytes % 11.1 %; Neutrophils # 3.9 K/mcL (1.6-8.9); Platelet Count 184 K/mcL (140-400); Red Blood Count 3.92 M/mcL (4.19-5.50); Red Cell Distribution Width 16.6 % (11.5-14.5); Segmented Neutrophils % 57.5 %
[2017-10-07 23:22] LABS: INR 1.1; Prothrombin Time 11.9 Seconds (9.4-12.1)
[2017-10-07 23:25] LABS: Activated Partial Thrombo Time 31.3 Seconds (26.0-36.0)
[2017-10-07 23:37] LABS: Alanine Aminotransferase 10 Units/L (7-52); Albumin 4.2 g/dL (3.5-5.7); Albumin/Globulin Ratio 1.6 (1.1-2.2); Alkaline Phosphatase 88 Units/L (34-104); Aspartate Amino Transferase 14 Units/L (13-39); BUN/Creatinine Ratio 18 (6-26); Bilirubin,Direct 0.3 mg/dL (0.0-0.2); Bilirubin,Indirect 0.3 mg/dL (0.0-1.2); Bilirubin,Total 0.6 mg/dL (0.3-1.0); Blood Urea Nitrogen 23 mg/dL (8-23); Calcium 9.7 mg/dL (8.6-10.3); Carbon Dioxide 26 mEq/L (23-29); Chloride 106 mEq/L (98-107); Globulin 2.7 g/dL (2.4-3.5); Glucose 106 mg/dL (70-105); Osmolality,Calculated 290 (280-300); Potassium 4.6 mEq/L (3.5-5.1); Sodium 138 mEq/L (136-145); Total Protein 6.9 g/dL (6.4-8.9); Troponin I < 0.03 ng/mL (< 0.04); eGFR For African Americans > 60 (> 60); eGFR For Non-African Americans 54 (> 60)
[2017-10-08] MEDS ORDERED: Isovue-370 500 ML INFUS..BTL IV ONE (00:05)
--- NOTE | 2017-10-08 01:25 | Emergency Department Note ---
Disposition Clinical Impression: Lung mass, Hemoptysis Disposition: Admitted As Inpatient Condition: Fair Forms: ED Satisfaction Letter, Work/School Release Time of Disposition: 00:30 General Adult HPI - General Chief complaint: ED General Medical Stated complaint: blood in sputum Time Seen by Provider: 10/07/17 22:22 Source: patient, EMS Limitations: no limitations Nursing Notes Reviewed: Yes Vital Signs Reviewed: Yes - History of Present Illness HPI Narrative: 72-year-old male presents emergency Department with concerns of hemoptysis. Patient states he has had a large amount of bright red hemoptysis over the past 24 hours. Patient states he had a large pile of thoroughly soaked tissues at home. He denies chest pain, shortness of breath, lightheadedness or syncope. Patient takes aspirin but no other blood thinners. Never had this problem in the past. Denies wheezing or fever. Patient does report having oxygen , he also sits most of the day in front of an air conditioner/the humidifier. Patient denies sinus pain. Pain Scale: 0 - Related Data Home Medications Medication Instructions Recorded Confirmed Aspirin [Lo-Dose Aspirin EC] 81 mg PO DAILY 04/16/17 04/16/17 Atorvastatin [Lipitor] 40 mg PO HS 04/16/17 04/16/17 Carvedilol [Coreg] 6.25 mg PO BIDWM 04/16/17 04/16/17 Escitalopram [Lexapro] 5 mg PO DAILY 04/16/17 04/16/17 Montelukast [Singulair] 10 mg PO DAILY 04/16/17 04/16/17 Nitroglycerin [Nitrostat] 0.4 mg SL PRN PRN 04/16/17 04/16/17 Triamcinolone Acetonide [Nasacort] 10.8 ml NS DAILY 04/16/17 04/16/17 Previous Rx's Medication Instructions Recorded GuaiFENesin ER [Mucinex] 600 mg PO BID PRN #60 tbbp.12hr 04/18/17 Nicotine Patch [Nicoderm] 14 mg TD DAILY #30 patch.td24 04/18/17 levoFLOXacin [Levaquin] 750 mg PO Q48H #3 tablet 04/18/17 predniSONE [PredniSONE] 10 mg PO DAILY #31 tablet 04/18/17 Allergies Allergy/AdvReac Type Severity Reaction Status Date / Time No Known Allergies Allergy Verified 10/01/15 13:54 All systems ED: reviewed and negative except as stated. Review of Systems: As Per HPI Past Medical History - Past Medical History Attestation: Yes The following information was validated with the patient. Source: patient Medical history: Reports: COPD, hypertension, myocardial infarction Psychiatric history: Reports: anxiety, depression - Social History Smoking Status: Former smoker Smokeless Tobacco Status: No Alcohol use: Reports: none Drug use: Reports: none Physical Exam General: Alert and in no acute distress Skin: Warm, dry, intact Head: Normocephalic and atraumatic Neck: Supple, trachea midline and no tenderness Cardiovascular: RRR, no murmur, normal perfusion Respiratory: CTAB, no wheezing, cough, or respiratory distress Musculoskeletal: Normal strength, no tenderness, swelling or deformity GI: Soft, nontender, nondistended. Bowel sounds present Neuro: A&O to person, place, time and situation. No focal deficits noted on exam Psychiatric: cooperative and appropriate mood and affect. - General Limitations: no limitations General appearance: alert, in no apparent distress Course Vital Signs Temperature 98.0 F 10/07/17 22:19 Pulse Rate 72 10/07/17 22:19 Respiratory Rate 16 10/07/17 22:19 Blood Pressure 192/96 10/07/17 22:19 O2 Sat by Pulse Oximetry 95 10/07/17 22:19 Temperature 98.0 F 10/07/17 22:19 Pulse Rate 64 10/08/17 01:32 Respiratory Rate 18 10/08/17 01:32 Blood Pressure 180/104 10/08/17 00:11 O2 Sat by Pulse Oximetry 94 10/08/17 01:32 Oxygen Delivery Oxygen Delivery Nasal Cannula Medical Decision Making - [facility] Narrative Medical decision making narrative: CT showed possible malignancy. Patient will be admitted for further care and evaluation and bronchoscopy. Patient was counseled regarding CT findings. - Medical Records Medical records reviewed: Yes I reviewed the patient's medical records. - Lab Data Lab results reviewed: Yes I reviewed the patient's lab results. Result diagrams: 10/07/17 23:04 10/07/17 23:04 Lab Results 10/07/17 10/07/17 10/07/17 Range/Units 23:04 23:04 23:04 WBC 6.8 (4.3-11.1) K/mcL RBC 3.92 L (4.19-5.50) M/mcL Hgb 11.1 L (12.9-16.9) g/dL Hct 33.8 L (37.5-50.1) % MCV 86.2 (83.0-100.0) fL MCH 28.3 (28.0-33.3) pg MCHC 32.8 (31.6-35.5) g/dL RDW 16.6 H (11.5-14.5) % Plt Count 184 (140-400) K/mcL MPV 9.4 (9.4-12.4) fL Immature Gran % 0.1 (0-4) % Seg Neutrophils % 57.5 % Lymphocytes % 27.6 % Monocytes % 11.1 % Eosinophils % 2.5 % Basophils % 1.2 % Neutrophils # 3.9 (1.6-8.9) K/mcL Lymphocytes # 1.9 (0.6-4.6) K/mcL Monocytes # 0.8 (0.0-1.3) K/mcL Eosinophils # 0.2 (0.0-0.6) K/mcL Basophils # 0.1 (0.0-0.2) K/mcL PT (9.4-12.1) Seconds INR APTT (26.0-36.0) Seconds D-Dimer (0-500) ng/mLFEU Sodium 138 (136-145) mEq/L Potassium 4.6 (3.5-5.1) mEq/L Chloride 106 (98-107) mEq/L Carbon Dioxide 26 (23-29) mEq/L BUN 23 (8-23) mg/dL Creatinine 1.29 (0.70-1.30) mg/dL Est GFR ( Amer) > 60 (> 60) Est GFR (Non-Af Amer) 54 L (> 60) BUN/Creatinine Ratio 18 (6-26) Glucose 106 H (70-105) mg/dL Calculated Osmolality 290 (280-300) Calcium 9.7 (8.6-10.3) mg/dL Total Bilirubin 0.6 (0.3-1.0) mg/dL Direct Bilirubin 0.3 H (0.0-0.2) mg/dL Indirect Bilirubin 0.3 (0.0-1.2) mg/dL AST 14 (13-39) Units/L ALT 10 (7-52) Units/L Alkaline Phosphatase 88 (34-104) Units/L Troponin I < 0.03 (< 0.04) ng/mL B-Natriuretic Peptide 741 H (Less than 100) pg/mL Serum Total Protein 6.9 (6.4-8.9) g/dL Albumin 4.2 (3.5-5.7) g/dL Globulin 2.7 (2.4-3.5) g/dL Albumin/Globulin Ratio 1.6 (1.1-2.2) 10/07/17 Range/Units 23:04 WBC (4.3-11.1) K/mcL RBC (4.19-5.50) M/mcL Hgb (12.9-16.9) g/dL Hct (37.5-50.1) % MCV (83.0-100.0) fL MCH (28.0-33.3) pg MCHC (31.6-35.5) g/dL RDW (11.5-14.5) % Plt Count (140-400) K/mcL MPV (9.4-12.4) fL Immature Gran % (0-4) % Seg Neutrophils % % Lymphocytes % % Monocytes % % Eosinophils % % Basophils % % Neutrophils # (1.6-8.9) K/mcL Lymphocytes # (0.6-4.6) K/mcL Monocytes # (0.0-1.3) K/mcL Eosinophils # (0.0-0.6) K/mcL Basophils # (0.0-0.2) K/mcL PT 11.9 (9.4-12.1) Seconds INR 1.1 APTT 31.3 (26.0-36.0) Seconds D-Dimer 1153 H (0-500) ng/mLFEU Sodium (136-145) mEq/L Potassium (3.5-5.1) mEq/L Chloride (98-107) mEq/L Carbon Dioxide (23-29) mEq/L BUN (8-23) mg/dL Creatinine (0.70-1.30) mg/dL Est GFR ( Amer) (> 60) Est GFR (Non-Af Amer) (> 60) BUN/Creatinine Ratio (6-26) Glucose (70-105) mg/dL Calculated Osmolality (280-300) Calcium (8.6-10.3) mg/dL Total Bilirubin (0.3-1.0) mg/dL Direct Bilirubin (0.0-0.2) mg/dL Indirect Bilirubin (0.0-1.2) mg/dL AST (13-39) Units/L ALT (7-52) Units/L Alkaline Phosphatase (34-104) Units/L Troponin I (< 0.04) ng/mL B-Natriuretic Peptide (Less than 100) pg/mL Serum Total Protein (6.4-8.9) g/dL Albumin (3.5-5.7) g/dL Globulin (2.4-3.5) g/dL Albumin/Globulin Ratio (1.1-2.2) - Radiology Data Radiology results reviewed: Yes I reviewed the patient's radiology results.
--- NOTE | 2017-10-08 02:14 | Internal Med History&Physical ---
<JaleelflaquitoFortino - Last Filed: 10/08/17 04:15> Date of Encounter: 10/08/17 Time of Encounter: 02:07 Internal Medicine - H&P: HPI Chief complaint: Hemoptysis Admitted From: Home History of present illness: Mr. Bianchi is a 72 year old male with a PMH of COPD with home O2 dependence, hypertension, CAD, and remote tobacco dependence who presents c/o large amount of bright red hemoptysis for the past 4 days. Patient reports saturating a large pile of tissues with blood at home today prior to arrival. He takes aspirin but no other blood thinners. Patient smoked for 57 years but quit 7 months ago when he was started on supplemental oxygen. Patient reports sitting in front of his air conditioner/ humidifier at home to help him breathe. Patient denies fever, chills, night sweats, weight loss, sinus pain, chest pain , shortness of breath, wheezing, lightheadedness, syncope, or h/o similar symptoms in the past. Past Med Surg Social Fam HX - Past Medical History Medical history: COPD, hypertension, myocardial infarction Psychiatric history: anxiety, depression - Past Surgical History Additional surgical history: cardiac stents X3 - Social History Smoking Status: Former smoker Smokeless Tobacco Status: No Alcohol use: none Drug use: none Current living situation: Home - Independent - Family History Mother Hx Family Cancer: Yes (Brain) Father Living Status: Age at : 27 Internal Medicine - H&P: Meds Aspirin [Adult Aspirin Regimen] 81 mg PO DAILY 10/08/17 [History] Atorvastatin [Lipitor] 40 mg PO HS 10/08/17 [History] Carvedilol [Coreg] 6.25 mg PO BIDWM 10/08/17 [History] Escitalopram [Lexapro] 5 mg PO DAILY 10/08/17 [History] Montelukast [Singulair] 10 mg PO DAILY 10/08/17 [History] Triamcinolone Acetonide [Nasacort] 1 spray NS 10/08/17 [History] 3 Allergy/AdvReac Type Severity Reaction Status Date / Time No Known Allergies Allergy Verified 10/01/15 13:54 All Systems PM: A 10-system review of systems was performed and is negative for pertinent findings except as documented above in the HPI. - Constitutional Constitutional: no anorexia, no chills, no fatigue, no fever(s), no weakness, no weight gain, no weight loss - EENT Eyes: no blurry vision, no diplopia Nose, mouth and throat: no bleeding gums, no dry mouth, no epistaxis, no sinus pain, no sore throat - Cardiovascular Cardiovascular ROS IM: no chest pain, no dyspnea, no dyspnea on exertion, no lightheadedness - Respiratory Respiratory: hemoptysis, no cough, no chest congestion, no change in phlegm color, no pain with cough - Gastrointestinal Gastrointestinal: no abdominal pain, no diarrhea, no heartburn, no melena, no nausea, no vomiting - Genitourinary Genitourinary ROS male: no difficulty urinating, no hematuria, no urinary frequency, no urinary urgency - Musculoskeletal Musculoskeletal ROS IM: no arthralgias, no back pain, no muscle weakness, no numbness, no tingling - Integumentary Integumentary IM: no erythema, no rash, no skin ulcer, no jaundice - Neurological Neurological ROS: no confusion, no dizziness, no headache(s), no numbness, no tingling - Psychiatric Psychiatric: anxiety, no depression - Endocrine Endocrine IM: no fatigue, no polydipsia, no polyphagia, no polyuria - Hematologic/Lymphatic Hematologic/Lymphatic: easy bleeding, no easy bruising, no lymphadenopathy - Constitutional Vitals: Temp Pulse Resp BP Pulse Ox 98.0 F 64 18 180/104 94 10/07/17 22:19 10/08/17 01:32 10/08/17 01:32 10/08/17 00:11 10/08/17 01:32 General appearance: Present: cooperative, A&O X 3, pleasant, no acute distress, answers questions appropriately - Head Head exam: Present: atraumatic, normocephalic - Eye Eye exam: Present: EOMI, PERRL, conjuntiva pink, sclera anicteric Pupils: Present: PERRL - ENT ENT exam: Present: mucous membranes moist, normal oropharynx - Neck Neck exam general surgery: Present: supple, trachea midline. Absent: lymphadenopathy - Respiratory Respiratory exam: Present: CTAB. Absent: accessory muscle use, rales, rhonchi, wheezes - Cardiovascular Cardiovascular exam: Present: RRR, +S1, +S2. Absent: diastolic murmur, gallop, rubs, systolic murmur - GI/Abdominal GI/Abdominal exam: Present: normal bowel sounds, soft, no peritoneal signs. Absent: distended, tenderness - Extremities Exam Extremities exam: Present: warm, radial pulses palpable and symmetrical. Absent : calf tenderness, cyanotic, pedal edema - Back Exam Back exam: Present: normal inspection. Absent: paraspinal tenderness, tenderness - Neurological Exam Neurological exam: Present: CN II-XII intact, oriented X3, no focal deficits. Absent: pronater drift, facial droop, speech deficit - Psychiatric Psychiatric exam: Present: anxious, normal affect - Skin Skin exam: Present: dry, intact Internal Med - H&P Results - Labs CBC & Chem 7: 10/07/17 23:04 10/07/17 23:04 Labs: Short CBC 10/07/17 Range/Units 23:04 WBC 6.8 (4.3-11.1) K/mcL Hgb 11.1 L (12.9-16.9) g/dL Hct 33.8 L (37.5-50.1) % Plt Count 184 (140-400) K/mcL Neutrophils # 3.9 (1.6-8.9) K/mcL BMP 10/07/17 23:04 Sodium 138 Potassium 4.6 Chloride 106 Carbon Dioxide 26 BUN 23 Creatinine 1.29 Glucose 106 H Calcium 9.7 Cardiac Enzymes 10/07/17 Range/Units 23:04 Troponin I < 0.03 (< 0.04) ng/mL Liver Function 10/07/17 Range/Units 23:04 Total Bilirubin 0.6 (0.3-1.0) mg/dL Direct Bilirubin 0.3 H (0.0-0.2) mg/dL AST 14 (13-39) Units/L ALT 10 (7-52) Units/L Alkaline Phosphatase 88 (34-104) Units/L Albumin 4.2 (3.5-5.7) g/dL - Pulse Oximetry Interpretation Digit-Finger O2 Sat by Pulse Oximetry: 94 (3L O2 via NC) - Impressions ITS Impressions Chest X-Ray 10/07/17 22:51 IMPRESSION: New right basilar consolidation medially, most compatible with pneumonia. That should be followed to resolution. D/ / Khalif Broderick MD / Khalif Broderick MD Interpreting Provider: Khalif Broderick MD Chest CTA 10/08/17 00:05 IMPRESSION: 1. No definite scan evidence for pulmonary embolus. 2. Suspected central obstructing mass at the right hilum with postobstructive pneumonia in the middle lobe and right lower lobe. Bronchoscopy should be considered for further evaluation. 3. The left upper lobe nodule is also suspicious for lung cancer. D/ / Sal Saavedra MD / Sal Saavedra MD Interpreting Provider: Sal Saavedra MD - Assessment and plan (1) Lung mass Current Visit: Yes Status: Acute Assessment and plan: COPD patient presented with hemoptysis CTA revealed suspected central obstructing mass at the right hilum with postobstructive pneumonia in the middle lobe and right lower lobe. The left upper lobe nodule is also suspicious for lung cancer. Questionable postobstructive pneumonia. Patient is afebrile, has normal WBC, denies cough or SOB. No antibiotics were started at this time. Pulmonology consulted to perform bronchoscopy for further evaluation/ biopsy. Consider oncology consult. NPO after midnight Continue monitoring (2) Chronic respiratory failure with hypoxia, on home O2 therapy Current Visit: Yes Status: Chronic Assessment and plan: Continue supplemental O2 Continue monitoring (3) COPD (chronic obstructive pulmonary disease) Current Visit: No Status: Chronic Assessment and plan: Not in acute exacerbation. Patient smoked for 57 years but quit 7 months ago when he was started on supplemental oxygen. Continue bronchodilators Qualifiers: COPD type: unspecified COPD Qualified Code(s): J44.9 - Chronic obstructive pulmonary disease, unspecified (4) HTN (hypertension) Current Visit: No Status: Chronic Assessment and plan: Continue home meds Qualifiers: Hypertension type: essential hypertension Qualified Code(s): I10 - Essential (primary) hypertension (5) DVT prophylaxis Current Visit: Yes Status: Acute Assessment and plan: EPCDs (6) HLD (hyperlipidemia) Current Visit: No Status: Chronic Assessment and plan: Continue home meds Qualifiers: Hyperlipidemia type: unspecified Qualified Code(s): E78.5 - Hyperlipidemia , unspecified - Time Spent With Patient Total time spent is greater than 50% in coordination of care (as documented) at patient's floor/unit and/or counseling patient: <Leanne Correa - Last Filed: 10/08/17 06:04> Date of Encounter: 10/08/17 Internal Medicine - H&P: HPI History of present illness: Mr. Bianchi is a 72 year old male All Systems PM: A 10-system review of systems was performed and is negative for pertinent findings except as documented above in the HPI. - Constitutional Vitals: Temp Pulse Resp BP Pulse Ox 97.8 F 57 15 192/94 94 10/08/17 05:01 10/08/17 05:01 10/08/17 05:30 10/08/17 05:30 10/08/17 05:30 Internal Med - H&P Results - Labs CBC & Chem 7: 10/07/17 23:04 10/07/17 23:04 - Attending Attestation I have seen and examined this patient independently. I have discussed with resident physician Dr. Damico regarding the management plan. Agree with the documentation. Will add azithromycin and Rocephin for obstructive pneumonia. - Assessment and plan (1) COPD (chronic obstructive pulmonary disease) Current Visit: No Status: Chronic Qualifiers: COPD type: unspecified COPD Qualified Code(s): J44.9 - Chronic obstructive pulmonary disease, unspecified (2) DVT prophylaxis Current Visit: Yes Status: Acute (3) Lung mass Current Visit: Yes Status: Acute (4) Chronic respiratory failure with hypoxia, on home O2 therapy Current Visit: Yes Status: Chronic (5) HTN (hypertension) Current Visit: No Status: Chronic Qualifiers: Hypertension type: essential hypertension Qualified Code(s): I10 - Essential (primary) hypertension (6) HLD (hyperlipidemia) Current Visit: No Status: Chronic Qualifiers: Hyperlipidemia type: unspecified Qualified Code(s): E78.5 - Hyperlipidemia , unspecified - Time Spent With Patient Total time spent is greater than 50% in coordination of care (as documented) at patient's floor/unit and/or counseling patient:
[2017-10-08] MEDS ORDERED: Acetaminophen 325 MG TABLET PO PRN (02:18)
[2017-10-08] MEDS ORDERED: traMADol 50 MG TABLET PO PRN (02:18)
[2017-10-08] MEDS ORDERED: Naloxone 0.4 MG/ML INJ IVP PRN (02:18)
[2017-10-08] MEDS ORDERED: Ondansetron ODT 4 MG TAB.RAPDIS SL PRN (02:18)
[2017-10-08] MEDS: Ipratropium/Albuterol Neb 3 ML IH SCH ×4 (05:30→22:36)
[2017-10-08] MEDS ORDERED: Azithromycin 500 MG in D5% in Water 250 ML IVPB SCH (06:00)
[2017-10-08] MEDS: cefTRIAXone 1,000 MG in Water for inj. (sterile) 20 ML 10 ML IVPB SCH (06:27)
[2017-10-08] MEDS ORDERED: *HR* Midazolam HCl 5 MG/5 ML VIAL IVP ONE ×2 (08:24→08:46)
[2017-10-08] MEDS ORDERED: *HR* EPINEPHrine 1 MG/10 ML SYRINGE INTRATRACH PRN (08:24)
[2017-10-08] MEDS ORDERED: Tetracaine/Benzocaine/Butamben 200MG/SPRAY (100SPY/BOT) MM ONE (08:24)
[2017-10-08] MEDS ORDERED: Lidocaine Viscous Oral Soln 15 ML SOLUTION MM ONE (08:24)
[2017-10-08] MEDS ORDERED: *HR* FentaNYL (PF) 100 MCG/2 ML VIAL IVP ONE (08:24)
--- NOTE | 2017-10-08 08:24 | Pre-Sedation Evaluation ---
Pre-sedation evaluation - Pre-sedation checklist Date of procedure: 10/08/17 Procedure: Bronchoscopy Recent Vitals: Last Vital Signs Temp 97.6 F 10/08/17 07:55 Pulse 53 10/08/17 07:55 Resp 16 10/08/17 07:55 BP 143/81 10/08/17 07:55 Pulse Ox 95 10/08/17 07:55 H&P (including ROS) documented in medical record: Yes Dietary Status: NPO after Midnight Possible difficult airway: No ASA Classification *see protocol: CLASS III-Severe systemic disease Plan of Care: Pt appropriate candidate for procedure/moderate/conscious sedation , Risks/benefits of procedure/sedation discussed w/ patient/family Cardiac Registry (Cardio Only) - Functional Capacity - Clincal Frailty Scale
[2017-10-08] MEDS ORDERED: *HR* FentaNYL (PF) 100 MCG/2 ML VIAL ONE (08:48)
[2017-10-08] MEDS: Albuterol 2.5 MG/3 ML NEBULIZER IH ONE ×2 (08:57→11:10)
[2017-10-08] MEDS ORDERED: Lidocaine Viscous Oral Soln 15 ML SOLUTION ONE (10:03)
[2017-10-08] MEDS ORDERED: Albuterol 2.5 MG/3 ML NEBULIZER ONE (11:05)
[2017-10-08] MEDS: 0.9 % Sodium Chloride 1,000 ML IVC SCH (11:34)
[2017-10-08] MEDS: methylPREDNISolone 125 MG/2 ML VIAL IVP SCH ×2 (12:05→16:41)
--- NOTE | 2017-10-08 12:19 | Pulmonology Consult Note ---
Date of Encounter: 10/08/17 Time of Encounter: 07:35 Assessment and Plan (1) Hemoptysis Current Visit: Yes Status: Acute Patient described significant amount of blood and this is very concerning for underlying lung cancer with his significant history of smoking in the past and the CT findings. This was discussed with the patient and also daughter and he will need bronchoscopy.A bronchoscopy is recommended. The procedure , risks, benefits, complications, and expected outcomes have been reviewed. Benefits of diagnosis, as well as risks to include bleeding, infection, pneumothorax which may require surgical intervention, and in a small population. The patient is aware that sometimes test is nondiagnostic. Discussed with patient and agrees to proceed. (2) Lung mass Current Visit: Yes Status: Acute This is very concerning for possibly lung cancer and also this is on CT chest to my impression is mass with some postobstructive findings and to treat him for postobstructive pneumonia is reasonable with antibiotics and systemic steroid. (3) Chronic respiratory failure with hypoxia, on home O2 therapy Current Visit: Yes Status: Chronic (4) COPD (chronic obstructive pulmonary disease) Current Visit: Yes Status: Chronic Continue bronchodilators and long-term oxygen therapy. Patient is on already. Qualifiers: COPD type: emphysema Emphysema type: other Qualified Code(s): J43.8 - Other emphysema History of Present Illness Consult date: 10/08/17 Requesting physician: Leanne Correa Reason for consult: abnormal CXR/CT, other (Hemoptysis) Chief complaint: Hemoptysis History of present illness: This is a very pleasant 72-year-old male with significant history of smoking who quit and has April and he has been having significant hemoptysis for the last 4 days, however he would not come to the hospital until his daughter convinced him. Patient is on long-term oxygen therapy and he denies any significant weight loss or fever or chills. Patient denies any chest discomfort and he was never told he has lung cancer in the past but in April he had pneumonia. He does use inhalers at home. Patient has dyspnea on exertion with some wheezing and productive sputum. Past Med Surg Social Fam HX - Past Medical History Medical history: COPD, hypertension, myocardial infarction Psychiatric history: anxiety, depression - Past Surgical History Additional surgical history: cardiac stents X3 - Social History Smoking Status: Former smoker Smokeless Tobacco Status: No Alcohol use: none Drug use: none - Family History Mother Hx Family Cancer: Yes (Brain) Father Living Status: Age at : 27 Medications and Allergies Albuterol Sulfate [Ventolin Hfa] 2 puff IH Q6H PRN 10/08/17 [History] Aspirin [Adult Aspirin Regimen] 81 mg PO DAILY 10/08/17 [History] Atorvastatin [Lipitor] 40 mg PO HS 10/08/17 [History] Carvedilol [Coreg] 6.25 mg PO BIDWM 10/08/17 [History] Escitalopram [Lexapro] 5 mg PO DAILY 10/08/17 [History] Montelukast [Singulair] 10 mg PO DAILY 10/08/17 [History] Triamcinolone Acetonide [Nasacort] 1 spray NS DAILY PRN 10/08/17 [History] 3 Allergy/AdvReac Type Severity Reaction Status Date / Time No Known Allergies Allergy Verified 10/01/15 13:54 All Systems: The remainder of the systems were reviewed and are negative Physical Examination Vital Signs: Vital Signs, Last 4 Hours Temp Pulse Resp BP Pulse Ox 10/08/17 11:45 98.5 F 50 16 146/81 94 10/08/17 11:15 98.0 F 54 16 123/67 93 10/08/17 10:52 54 18 123/67 93 10/08/17 10:47 66 18 160/80 91 10/08/17 10:42 65 18 161/85 91 10/08/17 10:37 63 18 182/96 95 10/08/17 10:32 73 16 193/94 91 10/08/17 10:27 64 16 219/113 98 10/08/17 10:14 52 16 165/97 96 10/08/17 10:09 97.6 F 53 16 143/81 95 General: Patient is in no acute distress. HEENT: Normocephalic atraumatic, pupils are equal round and reactive to light and accommodation, anicteric sclera, nares is patent, mucous membranes moist, no JVD, trachea is midline Cardiovascular: Normal sinus rhythm, S1 and S2 audible, no murmur or rubs Respiratory: Diminished to auscultation bilaterally. No acute distress. No wheezing. Patient not using accessory muscles. Abdomen: Soft, nontender, nondistended, positive bowel sounds in all 4 quadrants Extremities: Warm, dry, trace lower extremity edema. Normal capillary refill. Neuro: Alert and oriented and follows commands. Grossly no neuro deficits. Skin: Warm to touch : No obvious abnormalities. Psych: Normal Results - Laboratory Findings CBC and BMP: 10/08/17 13:57 10/07/17 23:04 PT/INR, D-dimer PT 11.9 Seconds (9.4-12.1) 10/07/17 23:04 D-Dimer 1153 ng/mLFEU (0-500) H 10/07/17 23:04 Abnormal lab findings: Abnormal lab results RBC 3.92 M/mcL (4.19-5.50) L 10/07/17 23:04 Hgb 11.1 g/dL (12.9-16.9) L 10/07/17 23:04 Hct 33.8 % (37.5-50.1) L 10/07/17 23:04 RDW 16.6 % (11.5-14.5) H 10/07/17 23:04 D-Dimer 1153 ng/mLFEU (0-500) H 10/07/17 23:04 Est GFR (Non-Af Amer) 54 (> 60) L 10/07/17 23:04 Glucose 106 mg/dL (70-105) H 10/07/17 23:04 Direct Bilirubin 0.3 mg/dL (0.0-0.2) H 10/07/17 23:04 B-Natriuretic Peptide 741 pg/mL (Less than 100) H 10/07/17 23:04 - Diagnostic Findings CT scan - chest: report reviewed, image reviewed - Clinical Findings Intake & Output: Intake & Output 10/07/17 10/08/17 10/08/17 23:59 07:59 15:59 Intake Total 0 / 0 Balance 0 / 0 Consult Discharge Plan - Plan Referrals: Keke Romeo, [facility] [Primary Care Provider] -
--- NOTE | 2017-10-08 12:24 | Internal Med Progress Note ---
Date of Encounter: 10/08/17 Time of Encounter: 12:22 - Assessment and plan (1) COPD (chronic obstructive pulmonary disease) Current Visit: Yes Status: Chronic Assessment and plan: Discussed with pulmonology. Patient has not bilateral wheezing. We will place him on intravenous steroids. Continue bronchodilators. Continue antibiotics Qualifiers: COPD type: emphysema Emphysema type: other Qualified Code(s): J43.8 - Other emphysema (2) Lung mass Current Visit: Yes Status: Acute Assessment and plan: Bronchoscopy with biopsy attempted today but mostly unsuccessful due to hemoptysis. Plan for bronchoscopy again tomorrow. (3) Chronic respiratory failure with hypoxia, on home O2 therapy Current Visit: Yes Status: Chronic Assessment and plan: [place] O2 supplementation. (4) DVT prophylaxis Current Visit: Yes Status: Acute Assessment and plan: With SCDs alone due to haemoptysis (5) HTN (hypertension) Current Visit: Yes Status: Chronic Assessment and plan: Blood pressure is elevated this morning. Resume home medications. Continue to monitor blood pressure closely. Qualifiers: Hypertension type: essential hypertension Qualified Code(s): I10 - Essential (primary) hypertension (6) HLD (hyperlipidemia) Current Visit: Yes Status: Chronic Assessment and plan: Continue Lipitor Qualifiers: Hyperlipidemia type: unspecified Qualified Code(s): E78.5 - Hyperlipidemia , unspecified - Time Spent With Patient Total time spent is greater than 50% in coordination of care (as documented) at patient's floor/unit and/or counseling patient: - Subjective Interval history: Patient seen earlier today. Was not having any further episodes of hemoptysis. Underwent bronchoscopy afterwards and was found to have a lot of bleeding. Epinephrine was injected. Patient to undergo bronchoscopy again tomorrow to obtain better biopsy sample. Denies any chest pain or palpitations. Shortness of breath at baseline. - Constitutional Vitals: Temp Pulse Resp BP Pulse Ox 98.5 F 50 16 146/81 94 10/08/17 11:45 10/08/17 11:45 10/08/17 11:45 10/08/17 11:45 10/08/17 11:45 General appearance: Present: cooperative, A&O X 3, pleasant, no acute distress, answers questions appropriately - Neck Neck exam general surgery: Present: supple, trachea midline. Absent: lymphadenopathy - Respiratory Respiratory exam: Present: CTAB, prolonged expiratory phase, wheezes. Absent: accessory muscle use, rales, rhonchi - Cardiovascular Cardiovascular exam: Present: RRR, +S1, +S2. Absent: diastolic murmur, gallop, rubs, systolic murmur - GI/Abdominal GI/Abdominal exam: Present: normal bowel sounds, soft, no peritoneal signs. Absent: distended, tenderness - Extremities Exam Extremities exam: Present: warm, radial pulses palpable and symmetrical. Absent : calf tenderness, cyanotic, pedal edema - Neurological Exam Neurological exam: Present: alert, oriented X3, no focal deficits. Absent: facial droop, speech deficit Internal Medicine: Result - Labs CBC & Chem 7: 10/07/17 23:04 10/07/17 23:04 - ABG Interpretation ABG results: PT/INR, D-dimer PT 11.9 Seconds (9.4-12.1) 10/07/17 23:04 D-Dimer 1153 ng/mLFEU (0-500) H 10/07/17 23:04 Consult Discharge Plan - Plan Referrals: Keke Romeo CLINICAL LAB SPECIALIST [Primary Care Provider] -
[2017-10-08 14:39] LABS: Hematocrit 32.9 % (37.5-50.1); Hemoglobin 10.6 g/dL (12.9-16.9)
[2017-10-08 20:17] LABS: Appearance of Body Fluid Cloudy (Clear); Volume of Body Fluid 25 mL
[2017-10-09] MEDS: methylPREDNISolone 125 MG/2 ML VIAL IVP SCH ×3 (01:47→16:47)
[2017-10-09] MEDS: Ipratropium/Albuterol Neb 3 ML IH SCH ×4 (03:46→22:05)
[2017-10-09 04:42] LABS: Hematocrit 32.7 % (37.5-50.1); Hemoglobin 10.4 g/dL (12.9-16.9); Immature Granulocytes % 0.1 % (0-4); Mean Corpuscular HGB Conc 31.8 g/dL (31.6-35.5); Mean Corpuscular Hemoglobin 27.4 pg (28.0-33.3); Mean Corpuscular Volume 86.1 fL (83.0-100.0); Mean Platelet Volume 10.1 fL (9.4-12.4); Monocytes # 0.1 K/mcL (0.0-1.3); Monocytes % 1.3 %; Neutrophils # 6.4 K/mcL (1.6-8.9); Platelet Count 195 K/mcL (140-400); Red Cell Distribution Width 16.6 % (11.5-14.5); Segmented Neutrophils % 85.6 %
[2017-10-09 05:02] LABS: BUN/Creatinine Ratio 18 (6-26); Blood Urea Nitrogen 25 mg/dL (8-23); Carbon Dioxide 23 mEq/L (23-29); Chloride 105 mEq/L (98-107); Glucose 171 mg/dL (70-105); Osmolality,Calculated 296 (280-300); Sodium 139 mEq/L (136-145); eGFR For African Americans > 60 (> 60); eGFR For Non-African Americans 51 (> 60)
[2017-10-09] MEDS ORDERED: *HR* FentaNYL (PF) 100 MCG/2 ML VIAL ONE (06:56)
[2017-10-09] MEDS ORDERED: *HR* Rocuronium Bromide 50 MG/5 ML VIAL ONE (06:56)
[2017-10-09] MEDS ORDERED: *HR* Propofol 200 MG/20 ML VIAL IVP ONE (06:56)
[2017-10-09] MEDS ORDERED: *HR* Succinylcholine 200 MG/10 ML VIAL IVP ONE (06:56)
[2017-10-09] MEDS ORDERED: Ondansetron 4 MG/2 ML VIAL ONE (06:56)
[2017-10-09] MEDS ORDERED: Lidocaine -MPF 4% 5 ML AMPUL ONE (06:56)
[2017-10-09] MEDS ORDERED: Dexamethasone 4 MG/ML VIAL ONE (06:56)
[2017-10-09] MEDS ORDERED: Lidocaine -MPF 2% 2 ML VIAL ONE (06:56)
[2017-10-09] MEDS: 0.9 % Sodium Chloride 1,000 ML IVC SCH (06:58)
--- NOTE | 2017-10-09 07:38 | Anesthesia Evaluation PreOp ---
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) Other Medical History: Denies Any Significant HX Anesthesia History: No Prior Anesthetic Complications, Past Anesthesia ( Bronchoscopy) Alcohol Use: none Drug use: none Medications and Allergies Albuterol Sulfate [Ventolin Hfa] 2 puff IH Q6H PRN 10/08/17 [History] Aspirin [Adult Aspirin Regimen] 81 mg PO DAILY 10/08/17 [History] Atorvastatin [Lipitor] 40 mg PO HS 10/08/17 [History] Carvedilol [Coreg] 6.25 mg PO BIDWM 10/08/17 [History] Escitalopram [Lexapro] 5 mg PO DAILY 10/08/17 [History] Montelukast [Singulair] 10 mg PO DAILY 10/08/17 [History] Triamcinolone Acetonide [Nasacort] 1 spray NS DAILY PRN 10/08/17 [History] 3 Allergy/AdvReac Type Severity Reaction Status Date / Time No Known Allergies Allergy Verified 10/01/15 13:54 - Meds/Allergy Pre-op Review Medications Reviewed: Yes Allergies Reviewed: Yes Beta Blockers on Current Med List: Yes If Beta Blockers taken, Date/Time (Last Dose taken): 16:41 10/08/2017 Anesthesia Results - Labs 10/09/17 04:11 10/09/17 04:11 Echocardiogram Name: Fidel Bianchi Date of Study: 04/16/2017 EV/EV echocardiogram Impressions: LVEF 35%. Moderate global LV systolic dysfunction. Mild left ventricular diastolic dysfunction. Mildly dilated RV with moderate to severely reduced function. Mild mitral regurgitation. Mild tricuspid regurgitation. Mild pulmonary hypertension. - Imaging EKG: report reviewed (SINUS RHYTHM INFERIOR MYOCARDIAL INFARCTION [40+ ms Q WAVE AND/OR ST/T ABNORMALITY IN II/aVF], OF INDETERMINATE AGE, POSSIBLY RECENT) Anesthesia Exam Vital Signs/O2 Sat, Most Current Temp Pulse Resp BP Pulse Ox 98.2 F 53 17 126/67 96 10/09/17 03:50 10/09/17 03:50 10/09/17 03:50 10/09/17 03:50 07/11/18 03:50 NPO (# of Hours): > 8 hrs Pain Scale: 0 Pain Scale Used: Numeric (1 - 10) - HEENT Pupil (Motor): Pupils equal, EOMI Mallampati: II Teeth: Edentulous Oral Opening: Greater than 3 - CINDER WORKER LOC: Oriented CINDER WORKER Motor: Normal RUE, Normal LUE, Normal RLE, Normal LLE, Normal Face CINDER WORKER Sensory: Normal: RUE, LUE, RLE, LLE, Face - Cardiac Rhythm: Regular Murmur: None JVD: No Carotid Bruit: No - Pulmonary Breath Sounds: bilateral Clear Respiratory Effort: Symmetrical Anesthesia Assess/Plan ASA Score: 4 Modified Sheila Scale for Level of Consciousness: Cooperative, oriented, and tranquil Anesthetic Plan: General Autologous Blood: Yes Monitoring Plan: Standard Monitors Recovery Plan: PACU
[2017-10-09] MEDS ORDERED: Lidocaine Viscous Oral Soln 15 ML SOLUTION ONE (07:40)
[2017-10-09] MEDS ORDERED: Ondansetron 4 MG/2 ML VIAL IVP ONE (08:37)
[2017-10-09] MEDS ORDERED: *HR* Labetalol 100 MG/20 ML MDV IVP PRN (08:37)
[2017-10-09] MEDS ORDERED: Albuterol 2.5 MG/3 ML NEBULIZER IH ONE (08:50)
[2017-10-09] MEDS ORDERED: *HR* EPINEPHrine 1 MG/10 ML SYRINGE ONE (08:55)
--- NOTE | 2017-10-09 09:45 | Anesthesia Evaluation Post Op ---
Date of Encounter: 10/09/17 Time of Encounter: 09:44 - Vital Signs Vital Signs: Vital Signs/O2 Sat, Most Current Temp Pulse Resp BP Pulse Ox 98.2 F 61 16 168/90 92 10/09/17 09:06 10/09/17 09:26 10/09/17 09:26 10/09/17 09:26 10/09/17 09:26 - Lungs Lungs: Clear Ascult./Percussion - Airway Airway: Non-obstructed - Cardiovascular Regular Rate - Mental Status Mental Status: Alert & Oriented, Answers Appropriately - Pain Pain Scale: 0 Pain Scale used: Numeric (1 - 10) - Nausea Vomiting Nausea Vomiting: Not Present - Hydration Hydration: Tolerates oral liquids, Has not voided - Discharge PostOp Status: Transfer Patient to floor
[2017-10-09] MEDS: Azithromycin 250 MG TABLET PO SCH (10:18)
[2017-10-09] MEDS: Ringers Solution, Lactated 1,000 ML IVC SCH (10:19)
[2017-10-09] MEDS: cefTRIAXone 1,000 MG in Water for inj. (sterile) 20 ML 10 ML IVPB SCH (10:19)
[2017-10-09] MEDS: BENZOCAINE/MENTHOL 1 LOZENGE (BAG OF 6) MM PRN ×4 (12:27→21:32)
--- NOTE | 2017-10-09 16:51 | Internal Med Progress Note ---
Date of Encounter: 10/09/17 Time of Encounter: 11:00 - Assessment and plan (1) Lung mass Current Visit: Yes Status: Acute Assessment and plan: Bronchial lesion. Underwent bronchoscopy and biopsy again today. Having intermittent hemoptysis. We will monitor blood counts. If hemoglobin levels remain stable and he is improves, plan for discharge tomorrow. Will arrange for outpatient follow-up with oncology once pathology results are available. (2) COPD (chronic obstructive pulmonary disease) Current Visit: Yes Status: Chronic Assessment and plan: Continue steroids and bronchodilators. Follow up with pulmonology as outpatient Qualifiers: COPD type: emphysema Emphysema type: other Qualified Code(s): J43.8 - Other emphysema (3) Chronic respiratory failure with hypoxia, on home O2 therapy Current Visit: Yes Status: Chronic Assessment and plan: Continue O2 supplementation. (4) DVT prophylaxis Current Visit: Yes Status: Acute Assessment and plan: SCDs alone due to hemoptysis (5) HTN (hypertension) Current Visit: Yes Status: Chronic Assessment and plan: Blood pressure elevated earlier today. It has improved since then. Patient placed on intravenous hydralazine as needed to control his BP greater than 160. We will add amlodipine to daily regimen. Qualifiers: Hypertension type: essential hypertension Qualified Code(s): I10 - Essential (primary) hypertension (6) HLD (hyperlipidemia) Current Visit: Yes Status: Chronic Assessment and plan: Continue statin Qualifiers: Hyperlipidemia type: unspecified Qualified Code(s): E78.5 - Hyperlipidemia , unspecified - Time Spent With Patient Total time spent is greater than 50% in coordination of care (as documented) at patient's floor/unit and/or counseling patient: - Subjective Interval history: Patient is doing well at this time. Underwent bronchoscopy earlier today. Having hemoptysis intermittently all leads improving overall. No fever or chills reported overnight. - Constitutional Vitals: Temp Pulse Resp BP Pulse Ox 97.7 F 74 17 130/71 93 10/09/17 16:36 10/09/17 16:36 10/09/17 16:36 10/09/17 16:36 10/09/17 16:36 General appearance: Present: cooperative, A&O X 3, pleasant, no acute distress, answers questions appropriately - Respiratory Respiratory exam: Present: prolonged expiratory phase, wheezes. Absent: accessory muscle use, rales, rhonchi - Cardiovascular Cardiovascular exam: Present: RRR, +S1, +S2. Absent: diastolic murmur, gallop, rubs, systolic murmur - GI/Abdominal GI/Abdominal exam: Present: normal bowel sounds, soft, no peritoneal signs. Absent: distended, tenderness - Extremities Exam Extremities exam: Present: warm, radial pulses palpable and symmetrical. Absent : calf tenderness, cyanotic, pedal edema Internal Medicine: Result - Labs CBC & Chem 7: 10/09/17 04:11 10/09/17 04:11 Labs: Short CBC 10/09/17 Range/Units 04:11 WBC 7.5 (4.3-11.1) K/mcL Hgb 10.4 L (12.9-16.9) g/dL Hct 32.7 L (37.5-50.1) % Plt Count 195 (140-400) K/mcL Neutrophils # 6.4 (1.6-8.9) K/mcL BMP 10/09/17 04:11 Sodium 139 Potassium 4.0 Chloride 105 Carbon Dioxide 23 BUN 25 H Creatinine 1.36 H Glucose 171 H Calcium 9.0 - ABG Interpretation ABG results: PT/INR, D-dimer PT 11.9 Seconds (9.4-12.1) 10/07/17 23:04 D-Dimer 1153 ng/mLFEU (0-500) H 10/07/17 23:04 Consult Discharge Plan - Plan Referrals: Keke Romeo, RV DETAILER [Primary Care Provider] -
--- NOTE | 2017-10-09 19:04 | Electrocardiograph Report ---
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
[2017-10-10] MEDS: methylPREDNISolone 125 MG/2 ML VIAL IVP SCH ×2 (02:26→08:12)
[2017-10-10] MEDS: Ipratropium/Albuterol Neb 3 ML IH SCH ×2 (04:00→10:58)
[2017-10-10 06:07] LABS: BUN/Creatinine Ratio 19 (6-26); Blood Urea Nitrogen 23 mg/dL (8-23); Calcium 8.6 mg/dL (8.6-10.3); Carbon Dioxide 27 mEq/L (23-29); Chloride 108 mEq/L (98-107); Glucose 137 mg/dL (70-105); Osmolality,Calculated 298 (280-300); Potassium 4.7 mEq/L (3.5-5.1); Sodium 141 mEq/L (136-145); eGFR For African Americans > 60 (> 60); eGFR For Non-African Americans 59 (> 60)
[2017-10-10] MEDS: cefTRIAXone 1,000 MG in Water for inj. (sterile) 20 ML 10 ML IVPB SCH (06:12)
[2017-10-10] MEDS: BENZOCAINE/MENTHOL 1 LOZENGE (BAG OF 6) MM PRN (06:24)
[2017-10-10] MEDS: Ringers Solution, Lactated 1,000 ML IVC SCH (08:11)
[2017-10-10] MEDS: Azithromycin 250 MG TABLET PO SCH (08:12)
[2017-10-10 10:10] LABS: Basophils % 0.1 %; Hematocrit 30.5 % (37.5-50.1); Hemoglobin 9.9 g/dL (12.9-16.9); Immature Granulocytes % 0.9 % (0-4); Lymphocytes # 0.7 K/mcL (0.6-4.6); Lymphocytes % 4.2 %; Mean Corpuscular HGB Conc 32.5 g/dL (31.6-35.5); Mean Corpuscular Hemoglobin 28.6 pg (28.0-33.3); Mean Corpuscular Volume 88.2 fL (83.0-100.0); Mean Platelet Volume 9.9 fL (9.4-12.4); Monocytes # 0.5 K/mcL (0.0-1.3); Monocytes % 2.8 %; Neutrophils # 15.9 K/mcL (1.6-8.9); Platelet Count 184 K/mcL (140-400); Red Blood Count 3.46 M/mcL (4.19-5.50); Red Cell Distribution Width 17.4 % (11.5-14.5)
--- NOTE | 2017-10-10 11:02 | Pulmonology Progress Note ---
Date of Encounter: 10/10/17 Time of Encounter: 09:50 Assessment and Plan (1) Hemoptysis Current Visit: Yes Status: Acute This is resolved after bronchoscopy and he is feeling better. Discussed with primary team and from pulmonary standpoint he can be discharged home to follow up with oncology regarding endobronchial lesion which was biopsied and the result is still pending. Thank you for consultation please call for any questions. (2) Lung mass Current Visit: Yes Status: Acute (3) Chronic respiratory failure with hypoxia, on home O2 therapy Current Visit: Yes Status: Chronic (4) COPD (chronic obstructive pulmonary disease) Current Visit: Yes Status: Chronic Patient can follow-up as outpatient if necessary and continue bronchodilators at this time. Empiric treatment with antibiotics is reasonable upon discharge. Qualifiers: Qualified Code(s): J43.8 - Other emphysema Subjective Principal diagnosis: Hemoptysis Interval history: Patient denies any hemoptysis after procedure Objective PUL Vital signs: Last Vital Signs Temp 97.9 F 10/10/17 07:56 Pulse 62 10/10/17 07:56 Resp 18 10/10/17 07:56 BP 158/77 10/10/17 07:56 Pulse Ox 94 10/10/17 07:56 General appearance: no acute distress Eyes: nonicteric Neck: supple Effort: normal Auscultation: bilateral: diminished breath sounds Percussion: bilateral: not dull Cardiovascular: regular rate and rhythm Gastrointestinal: normoactive bowel sounds, non-distended Extremities: no cyanosis normal mental status, non-focal exam mood appropriate Results - Laboratory Findings CBC and BMP: 10/10/17 09:56 10/10/17 04:44 PT/INR, D-dimer PT 11.9 Seconds (9.4-12.1) 10/07/17 23:04 D-Dimer 1153 ng/mLFEU (0-500) H 10/07/17 23:04 Abnormal lab findings: Abnormal lab results WBC 17.3 K/mcL (4.3-11.1) H D 10/10/17 09:56 RBC 3.46 M/mcL (4.19-5.50) L 10/10/17 09:56 Hgb 9.9 g/dL (12.9-16.9) L 10/10/17 09:56 Hct 30.5 % (37.5-50.1) L 10/10/17 09:56 RDW 17.4 % (11.5-14.5) H 10/10/17 09:56 Neutrophils # 15.9 K/mcL (1.6-8.9) H 10/10/17 09:56 D-Dimer 1153 ng/mLFEU (0-500) H 10/07/17 23:04 Chloride 108 mEq/L (98-107) H 10/10/17 04:44 Est GFR (Non-Af Amer) 59 (> 60) L 10/10/17 04:44 Glucose 137 mg/dL (70-105) H 10/10/17 04:44 Direct Bilirubin 0.3 mg/dL (0.0-0.2) H 10/07/17 23:04 B-Natriuretic Peptide 741 pg/mL (Less than 100) H 10/07/17 23:04 Fluid Appearance Cloudy (Clear) A 10/08/17 10:33 - Microbiology Findings Microbiology Findings: Microbiology, Last 48 Hours 10/08/17 10:33 Gram Stain - Final Right Lower Lobe Lung Respiratory Culture - Preliminary No growth. - Clinical Findings Intake & Output: Intake & Output 10/09/17 10/10/17 10/10/17 23:59 07:59 15:59 Intake Total 1360 / 1360 390 / 390 Output Total 0 / 0 Balance 1360 / 1360 390 / 390 Weight 59.477 kg Consult Discharge Plan - Plan Referrals: Keke Romeo, GAGE MAKER [Primary Care Provider] -
--- NOTE | 2017-10-10 11:06 | Discharge Summary ---
- NOTES TO OUTPATIENT PROVIDER Notes to Outpatient Provider: Patient initially hospitalized for hemoptysis. CT scan of the chest showed central obstructing mass at the right hilum with postobstructive pneumonia in the middle lobe and right lower lobe. Patient was evaluated by pulmonology and underwent bronchoscopy. Initial attempt was mostly unsuccessful due to significant bleeding. Epinephrine was injected. Patient then underwent repeat procedure yesterday and biopsies were taken. He will follow up with pulmonology and oncology for further management. Orders not resulted at time of discharge: Pending orders 10/08/17 10:33 Culture,Respiratory [RM] Routine Gram Stain [RM] Routine 10/08/17 11:31 Cytology [PTH] Routine 10/09/17 08:59 Cytology [PTH] Routine 10/09/17 09:01 Surgical Pathology [PTH] Routine Date of Encounter: 10/10/17 Time of Encounter: 11:00 - Discharge Diagnosis (1) Postobstructive pneumonia Priority: Primary Status: Acute (2) Lung mass Priority: Secondary Status: Acute (3) COPD (chronic obstructive pulmonary disease) Priority: Secondary Status: Chronic Qualifiers: COPD type: emphysema Emphysema type: other Qualified Code(s): J43.8 - Other emphysema (4) Chronic respiratory failure with hypoxia, on home O2 therapy Priority: Secondary Status: Chronic (5) DVT prophylaxis Priority: Secondary Status: Acute (6) HTN (hypertension) Priority: Secondary Status: Chronic Qualifiers: Hypertension type: essential hypertension Qualified Code(s): I10 - Essential (primary) hypertension (7) HLD (hyperlipidemia) Priority: Secondary Status: Chronic Qualifiers: Hyperlipidemia type: unspecified Qualified Code(s): E78.5 - Hyperlipidemia , unspecified Hospital course: Mr. Bianchi is a 72 year old male Patient with a history of COPD and chronic tobacco abuse who was with a history initially hospitalized for hemoptysis. CT scan of the chest showed central obstructing mass at the right hilum with postobstructive pneumonia in the middle lobe and right lower lobe. Patient was evaluated by pulmonology and underwent bronchoscopy. Initial attempt was mostly unsuccessful due to significant bleeding. Epinephrine was injected. Patient then underwent repeat procedure yesterday and biopsies were taken. He will follow up with pulmonology and oncology for further management. He was treated with antibiotics for his pneumonia. He was also placed on steroids per pulmonary recommendations due to his endobronchial lesion. He will be discharged home on a steroid taper and will complete antibiotic course. Discharge discussed with: patient, nurse, consumer services consultant - Time Spent with Patient Total time spent providing and/or coordinating discharge services: Greater than 30 minutes (32 min) - Discharge Medications Prescriptions: amLODIPine [Norvasc] 5 mg PO DAILY #30 tablet Azithromycin [Zithromax] 500 mg PO DAILY #6 tablet Cefdinir [Omnicef] 300 mg PO BID #10 capsule predniSONE [PredniSONE] 10 mg PO DAILY #8 tablet Home Medications: Albuterol Sulfate [Ventolin Hfa] 2 puff IH Q6H PRN 10/08/17 [History] Aspirin [Adult Aspirin Regimen] 81 mg PO DAILY 10/08/17 [History] Atorvastatin [Lipitor] 40 mg PO HS 10/08/17 [History] Carvedilol [Coreg] 6.25 mg PO BIDWM 10/08/17 [History] Escitalopram [Lexapro] 5 mg PO DAILY 10/08/17 [History] Montelukast [Singulair] 10 mg PO DAILY 10/08/17 [History] Triamcinolone Acetonide [Nasacort] 1 spray NS DAILY PRN 10/08/17 [History] Azithromycin [Zithromax] 500 mg PO DAILY #6 tablet 10/10/17 [Rx] Cefdinir [Omnicef] 300 mg PO BID #10 capsule 10/10/17 [Rx] amLODIPine [Norvasc] 5 mg PO DAILY #30 tablet 10/10/17 [Rx] predniSONE [PredniSONE] 10 mg PO DAILY #8 tablet 10/10/17 [Rx] Allergies/Adverse Reactions: 3 Allergy/AdvReac Type Severity Reaction Status Date / Time No Known Allergies Allergy Verified 10/01/15 13:54 Date of admission: 10/08/17 03:48 Primary care physician: Keke Romeo CNP Consults: 10/08/17 02:18 Consult to Pulmonology [CONS] Routine Consulting Provider: [facility] Reason for Consult: Lung mass, Hemoptysis, bronchoscopy Time Notified: 06:50 Call Completed: Yes 10/08/17 02:19 Consult to Nurse Navigator [CONS] Routine Comment: Discharging clinician: Gallo Nieves Anticipated date of discharge: 10/10/17 - Constitutional Vitals: Temp Pulse Resp BP Pulse Ox 97.9 F 62 18 158/77 94 10/10/17 07:56 10/10/17 07:56 10/10/17 07:56 10/10/17 07:56 10/10/17 07:56 General appearance: Present: cooperative, A&O X 3, pleasant, no acute distress, answers questions appropriately - Neck Neck exam general surgery: Present: supple, trachea midline. Absent: lymphadenopathy - Respiratory Respiratory exam: Present: prolonged expiratory phase, wheezes. Absent: accessory muscle use, rales, rhonchi - Cardiovascular Cardiovascular exam: Present: RRR, +S1, +S2. Absent: diastolic murmur, gallop, rubs, systolic murmur - GI/Abdominal GI/Abdominal exam: Present: normal bowel sounds, soft, no peritoneal signs. Absent: distended, tenderness - Extremities Exam Extremities exam: Present: warm, radial pulses palpable and symmetrical. Absent : calf tenderness, cyanotic, pedal edema - Neurological Exam Neurological exam: Present: CN II-XII intact, oriented X3, no focal deficits. Absent: facial droop, speech deficit - Skin Skin exam: Present: dry, intact - Patient Status Disposition: Home, Self-Care Condition: Good Functional capacity at discharge: independent ambulation Overall status at discharge: patient is progressing back to baseline - Discharge Instructions Instructions: Chronic Obstructive Pulmonary Disease (DC), Chronic Hypertension (DC), Pneumonia (DC) Follow Up With: Keke Romeo CNP [Primary Care Provider] - 10/15/17 2:15 pm (You will follow up with Ms. jaime) Matti Duval MD [Partnered Physician] - 10/17/17 1:45 pm (Please follow up as schedule...) Tanesha Gomez MD [Partnered Physician] - 10/29/17 3:30 pm (Please follow up as schedule...) - Diet and Activity Activity: as per physical therapy, wear oxygen at all times Diet: advance to your usual diet
[2017-10-10 11:07] VITALS: BP 153/76
== END 2017-10-10 15:34 | disposition home or self-care (01) ==
LOC: 2ANU 22:17 → EMEROO 22:17 → 2ANU 10-08 04:02 → SUATTDRO 10-08 06:14
PROVIDERS: ADMIT Internal Medicine; ATTEND Internal Medicine

== ENCOUNTER 2018-04-27 19:45 | Inpatient (IN) ==
[2018-04-27] MEDS ORDERED: Furosemide 40 MG TABLET PO STA (19:57)
--- NOTE | 2018-04-27 20:05 | Emergency Department Note ---
Disposition Clinical Impression: Bilateral lower extremity edema Disposition: Home, Self-Care General Adult HPI - General Chief complaint: ED Extremity Problem,Nontraumatic Stated complaint: Edema Time Seen by Provider: 04/27/18 19:47 Source: patient Limitations: no limitations Nursing Notes Reviewed: Yes Vital Signs Reviewed: Yes - History of Present Illness HPI Narrative: Attestation note: Patient was seen with the emergency medicine resident/nurse practi reginaldoner/physician account management assistant/transitional resident/medical student: Dr. TESSA NO I have personally performed a face to face evaluation on this patient. I have reviewed and agree with history and physical examination patient management and disposition. Briefly the salient points of the case are as follows: 72-year-old male history of stage IV lung cancer and congestive heart failure provided by EMS today because of weeping legs secondary to edema. Patient has never had bleeding before. No increase of her dyspnea no chest pain no fevers chills or recent medication changes ill contacts exotic food or recent travel. He has symmetrically swollen legs up to the knee about 3+. He has good skin coloration and warmth and 2+ pulses patient's has mild decreased breath sounds in his lungs but at baseline. Based on his lung cancer. Patient is taking Lasix 20 mg daily within a double dose 20 mg twice a day for the next 3 days and advised him to supplement his diet with potassium rich foods such as bananas and noted juice. Patient will follow up with his primary care provider within the next 2-5 days. Patient will be EMS transportation back home because he is oxygen dependent. Patient got a dose of Lasix here 20 mg orally. Discharge disposition pending Pain Scale: 0 - Related Data Home Medications Medication Instructions Recorded Confirmed Albuterol Sulfate [Ventolin Hfa] 2 puff IH Q6H PRN 10/08/17 04/25/18 Carvedilol [Coreg] 6.25 mg PO BIDWM 10/08/17 04/25/18 Escitalopram [Lexapro] 5 mg PO DAILY 10/08/17 04/25/18 Montelukast [Singulair] 10 mg PO DAILY 10/08/17 04/25/18 Aspirin [Adult Aspirin Regimen] 81 mg PO DAILY 02/10/18 04/25/18 Melatonin [Melatin] 3 mg PO HS 02/10/18 04/25/18 Nitroglycerin [Nitrostat] 0.4 mg SL AD PRN 02/10/18 04/25/18 Promethazine [Phenergan] 25 mg PO Q6HR PRN 02/10/18 04/25/18 Lisinopril 2.5 mg PO DAILY 03/10/18 04/25/18 Previous Rx's Medication Instructions Recorded Acetaminophen [Tylenol] 500 mg PO Q4HR PRN tablet 12/12/17 Budesonide/Formoterol 160/4.5 2 puff IH BID #1 hfa.aer.ad 02/10/18 [Symbicort 160/4.5] HydrOXYzine 10 mg PO Q6H PRN #30 tablet 03/10/18 Magic Mouthwash [Magic Mouthwash 10 ml PO QID PRN #400 ml 03/12/18 BLM] Sennosides [Senna] 8.6 mg PO 1-2XD PRN #60 tablet 03/26/18 Furosemide [Lasix] 20 mg PO DAILY #7 tablet 04/25/18 Allergies Allergy/AdvReac Type Severity Reaction Status Date / Time No Known Allergies Allergy Verified 04/25/18 15:35 Past Medical History - Past Medical History Medical history: Reports: cancer, COPD, coronary artery disease, CVA, hypertens ion, myocardial infarction, TIA Surgical history: Reports: other Psychiatric history: Reports: anxiety, depression - Social History Smoking Status: Former smoker Smokeless Tobacco Status: No Alcohol use: Reports: none Drug use: Reports: none Physical Exam - General Limitations: no limitations General appearance: alert, in no apparent distress Course Vital Signs Temperature 97.9 F 04/27/18 19:52 Pulse Rate 79 04/27/18 19:52 Respiratory Rate 18 04/27/18 19:52 Blood Pressure 147/91 04/27/18 19:52 O2 Sat by Pulse Oximetry 95 04/27/18 19:52 Temperature 97.9 F 04/27/18 19:52 Pulse Rate 79 04/27/18 19:52 Respiratory Rate 18 04/27/18 19:52 Blood Pressure 147/91 04/27/18 19:52 O2 Sat by Pulse Oximetry 95 04/27/18 19:52 Oxygen Delivery Oxygen Delivery Room Air
--- NOTE | 2018-04-27 20:50 | Emergency Department Note ---
Disposition Clinical Impression: Bilateral lower extremity edema Disposition: Admitted As Inpatient Condition: Good Referrals: NONE,PCP [Primary Care Provider] - Forms: ED Satisfaction Letter Time of Disposition: 21:25 General Adult HPI - General Chief complaint: ED Extremity Problem,Nontraumatic Stated complaint: Edema Time Seen by Provider: 04/27/18 19:47 Source: patient, EMS Mode of arrival: EMS Limitations: no limitations Nursing Notes Reviewed: Yes Vital Signs Reviewed: Yes - History of Present Illness HPI Narrative: 72-year-old male with significant past medical history of stage IV lung cancer recently completing radiation treatments presenting to the emergency department with chief complaint of bilateral lower extremity swelling. Patient states for approximately 1 week use had worsening bilateral lower extremity swelling. He states this is never happened before. He denies any shortness of breath or chest pain. Denies any abdominal pain, nausea or vomiting. He states he tries to lift his feet up at home but his swelling is gotten worse. He was put on 20 mg Lasix daily starting on Saturday by his oncologist due to the swelling but this has not helped. He became concerned this evening when his leg started to weep and came in for further evaluation. Pain Scale: 0 - Related Data Home Medications Medication Instructions Recorded Confirmed Albuterol Sulfate [Ventolin Hfa] 2 puff IH Q6H PRN 10/08/17 04/25/18 Carvedilol [Coreg] 6.25 mg PO BIDWM 10/08/17 04/25/18 Escitalopram [Lexapro] 5 mg PO DAILY 10/08/17 04/25/18 Montelukast [Singulair] 10 mg PO DAILY 10/08/17 04/25/18 Aspirin [Adult Aspirin Regimen] 81 mg PO DAILY 02/10/18 04/25/18 Melatonin [Melatin] 3 mg PO HS 02/10/18 04/25/18 Nitroglycerin [Nitrostat] 0.4 mg SL AD PRN 02/10/18 04/25/18 Promethazine [Phenergan] 25 mg PO Q6HR PRN 02/10/18 04/25/18 Lisinopril 2.5 mg PO DAILY 03/10/18 04/25/18 Previous Rx's Medication Instructions Recorded Acetaminophen [Tylenol] 500 mg PO Q4HR PRN tablet 12/12/17 Budesonide/Formoterol 160/4.5 2 puff IH BID #1 hfa.aer.ad 02/10/18 [Symbicort 160/4.5] HydrOXYzine 10 mg PO Q6H PRN #30 tablet 03/10/18 Magic Mouthwash [Magic Mouthwash 10 ml PO QID PRN #400 ml 03/12/18 BLM] Sennosides [Senna] 8.6 mg PO 1-2XD PRN #60 tablet 03/26/18 Furosemide [Lasix] 20 mg PO DAILY #7 tablet 04/25/18 Allergies Allergy/AdvReac Type Severity Reaction Status Date / Time No Known Allergies Allergy Verified 04/25/18 15:35 All systems ED: reviewed and negative except as stated. Constitutional: Denies: fever Eyes: Reports: as per HPI ENT ED: Reports: as per HPI Cardiovascular: Denies: chest pain Respiratory: Reports: as per HPI Gastrointestinal: Denies: abdominal pain Genitourinary: Reports: as per HPI Musculoskeletal: Reports: as per HPI Integumentary: Reports: other (2+ pitting edema bilateral lower extremity) Neurological: Reports: as per HPI Psychiatric: Reports: as per HPI Endocrine: Reports: as per HPI Hematological/Lymphatic: Reports: as per HPI Allergic/Immunologic: Reports: as per HPI Past Medical History - Past Medical History Attestation: Yes The following information was validated with the patient. Medical history: Reports: cancer, COPD, coronary artery disease, CVA, h ypertension, myocardial infarction, TIA Surgical history: Reports: other Psychiatric history: Reports: anxiety, depression - Social History Smoking Status: Former smoker Smokeless Tobacco Status: No Alcohol use: Reports: none Drug use: Reports: none Physical Exam - General Limitations: no limitations General appearance: alert, in no apparent distress - Head Head exam: atraumatic, normocephalic, normal inspection - Eye Eye exam: Absent: scleral icterus - ENT ENT exam: mucous membranes dry - Neck Neck exam: Present: full ROM - Chest Chest inspection: Present: symmetric chest wall rise - Respiratory Respiratory exam: Present: wheezes (Mild expiratory wheezing throughout) - Cardiovascular Cardiovascular exam: Present: regular rate, normal rhythm, normal heart sounds - Abdominal Exam Abdominal exam: Present: soft, Non-Tender. Absent: distention, guarding, rebound - Extremities Exam Extremities exam: Present: full ROM, other (2+ pitting edema bilateral lower extremities) - Neurological Exam Neurological exam: Present: alert, oriented X3 - Psychiatric Psychiatric exam: Present: normal affect - Skin Skin exam: Present: warm Course Course Narrative: 72-year-old male presenting with bilateral lower extremity edema. On physical exam he has 2+ pitting edema in the bilateral lower extremities. On exam patient is otherwise alert and oriented 3 and hemodynamically stable. He denies any other symptoms. I spoke with his daughter, DARREL, who states he does live at home alone and she is concerned that he is going to not be able to take care of himself or wrap his legs appropriately at home. She also told me that he was started on the 20 mg of Lasix because he has had IV hydration needs to the oncology department due to severe dehydration. She is concerned that if we increase the Lasix dose for him at home that he will get too dehydrated the bleeding oh. Due to patient's complex past medical history and concern for him going home alone and not being able take care of himself will plan to admit him. We will provide him with Lasix here and perform a CBC, BMP and chest x-ray. Patient agrees with admission at this time. Pending laboratory analysis. - Reevaluation(s) Reevaluation #1: Spoke with the hospitalist online user experience strategist Dr. Harrington who agrees to accept the patient at this time. CBC shows anemia which is chronic for the patient for hemoglobin at 7.5. Juany has requested a type and screen which I have ordered. Otherwise laboratory analysis unchanged. Patient remains alert and oriented 3 and hemodynamically stable. Vital Signs Temperature 97.9 F 04/27/18 19:52 Pulse Rate 79 04/27/18 19:52 Respiratory Rate 18 04/27/18 19:52 Blood Pressure 147/91 04/27/18 19:52 O2 Sat by Pulse Oximetry 95 04/27/18 19:52 Temperature 97.9 F 04/27/18 19:52 Pulse Rate 79 04/27/18 19:52 Respiratory Rate 18 04/27/18 19:52 Blood Pressure 147/91 04/27/18 19:52 O2 Sat by Pulse Oximetry 95 04/27/18 19:52 Oxygen Delivery Oxygen Delivery Room Air Medical Decision Making - Lab Data Result diagrams: 04/27/18 20:43 04/27/18 20:43 Lab Results 04/27/18 04/27/18 Range/Units 20:43 20:43 WBC 6.8 (4.3-11.1) K/mcL RBC 3.16 L (4.19-5.50) M/mcL Hgb 7.9 L (12.9-16.9) g/dL Hct 25.4 L (37.5-50.1) % MCV 80.4 L (83.0-100.0) fL MCH 25.0 L (28.0-33.3) pg MCHC 31.1 L (31.6-35.5) g/dL RDW 26.3 H (11.5-14.5) % Plt Count 330 (140-400) K/mcL MPV 9.3 L (9.4-12.4) fL Immature Gran % 1.2 (0-4) % Seg Neutrophils % 91.2 % Lymphocytes % 3.5 % Monocytes % 4.0 % Eosinophils % 0.0 % Basophils % 0.1 % Neutrophils # 6.2 (1.6-8.9) K/mcL Lymphocytes # 0.2 L (0.6-4.6) K/mcL Monocytes # 0.3 (0.0-1.3) K/mcL Eosinophils # 0.0 (0.0-0.6) K/mcL Basophils # 0.0 (0.0-0.2) K/mcL Toxic Granulation Present A (Not Present) Platelet Estimate Normal (Normal) Hypochromasia Present A (Not Present) Poikilocytosis 1+ A (Not Present) Anisocytosis 2+ A (Not Present) Ovalocytes 1+ A (Not Present) Sodium 136 (136-145) mEq/L Potassium 4.6 (3.5-5.1) mEq/L Chloride 99 (98-107) mEq/L Carbon Dioxide 29 (23-29) mEq/L BUN 20 (8-23) mg/dL Creatinine 0.92 (0.70-1.30) mg/dL Est GFR ( Amer) > 60 (> 60) Est GFR (Non-Af Amer) > 60 (> 60) BUN/Creatinine Ratio 22 (6-26) Glucose 119 H (70-105) mg/dL Calculated Osmolality 286 (280-300) Calcium 9.2 (8.6-10.3) mg/dL
[2018-04-27 20:57] LABS: Basophils % 0.1 %; Hematocrit 25.4 % (37.5-50.1); Hemoglobin 7.9 g/dL (12.9-16.9); Immature Granulocytes % 1.2 % (0-4); Lymphocytes # 0.2 K/mcL (0.6-4.6); Lymphocytes % 3.5 %; Mean Corpuscular HGB Conc 31.1 g/dL (31.6-35.5); Mean Corpuscular Volume 80.4 fL (83.0-100.0); Mean Platelet Volume 9.3 fL (9.4-12.4); Monocytes # 0.3 K/mcL (0.0-1.3); Neutrophils # 6.2 K/mcL (1.6-8.9); Platelet Count 330 K/mcL (140-400); Red Blood Count 3.16 M/mcL (4.19-5.50); Red Cell Distribution Width 26.3 % (11.5-14.5); Segmented Neutrophils % 91.2 %
[2018-04-27 21:15] LABS: BUN/Creatinine Ratio 22 (6-26); Blood Urea Nitrogen 20 mg/dL (8-23); Calcium 9.2 mg/dL (8.6-10.3); Carbon Dioxide 29 mEq/L (23-29); Chloride 99 mEq/L (98-107); Glucose 119 mg/dL (70-105); Osmolality,Calculated 286 (280-300); Potassium 4.6 mEq/L (3.5-5.1); Sodium 136 mEq/L (136-145); eGFR For Non-African Americans > 60 (> 60)
[2018-04-27 21:16] LABS: Anisocytosis 2+ (Not Present); Hypochromasia Present (Not Present); Ovalocytes 1+ (Not Present); Platelet Estimate Normal (Normal); Poikilocytosis 1+ (Not Present); Toxic Granulation Present (Not Present)
[2018-04-28] MEDS ORDERED: *HR* Heparin 5,000 UNIT/ML VIAL IVP PRN ×2 (01:26)
[2018-04-28] MEDS ORDERED: Acetaminophen 325 MG TABLET PO PRN (01:26)
[2018-04-28] MEDS ORDERED: Naloxone 0.4 MG/ML INJ IVP PRN (01:26)
[2018-04-28] MEDS ORDERED: *HR* Heparin 5,000 UNIT/ML VIAL IVP ONE (01:26)
[2018-04-28] MEDS ORDERED: Heparin 25,000 UNIT/500 ML D5W 25,000 UNIT/500 ML BAG IVC SCH (01:30)
[2018-04-28] MEDS ORDERED: Nitroglycerin 0.4 MG TAB.SUBL SL PRN (01:31)
[2018-04-28] MEDS ORDERED: Albuterol 2.5 MG/3 ML NEBULIZER IH PRN (01:33)
[2018-04-28 01:56] LABS: Basophils % 0.1 %; Hematocrit 28.7 % (37.5-50.1); Hematocrit 28.8 % (37.5-50.1); Hemoglobin 8.6 g/dL (12.9-16.9); Hemoglobin 8.8 g/dL (12.9-16.9); Immature Granulocytes % 0.9 % (0-4); Lymphocytes # 0.3 K/mcL (0.6-4.6); Lymphocytes % 3.9 %; Mean Corpuscular HGB Conc 30.6 g/dL (31.6-35.5); Mean Corpuscular Hemoglobin 24.2 pg (28.0-33.3); Mean Corpuscular Hemoglobin 24.6 pg (28.0-33.3); Mean Corpuscular Volume 80.7 fL (83.0-100.0); Mean Corpuscular Volume 80.8 fL (83.0-100.0); Mean Platelet Volume 8.9 fL (9.4-12.4); Mean Platelet Volume 9.3 fL (9.4-12.4); Monocytes # 0.3 K/mcL (0.0-1.3); Monocytes % 4.8 %; Platelet Count 368 K/mcL (140-400); Platelet Count 384 K/mcL (140-400); Red Blood Count 3.55 M/mcL (4.19-5.50); Red Blood Count 3.57 M/mcL (4.19-5.50); Red Cell Distribution Width 26.5 % (11.5-14.5); Segmented Neutrophils % 90.3 %
[2018-04-28 01:58] LABS: Neutrophils # 6.1 K/mcL (1.6-8.9)
[2018-04-28 02:03] LABS: Heparin anti-factor XA UFH 0.01 IU/mL (0.30-0.70)
[2018-04-28 02:04] LABS: INR 1.1; Prothrombin Time 11.9 Seconds (9.4-12.1)
[2018-04-28 02:16] LABS: Alanine Aminotransferase 19 Units/L (7-52); Albumin 3.2 g/dL (3.5-5.7); Albumin/Globulin Ratio 0.8 (1.1-2.2); Alkaline Phosphatase 79 Units/L (34-104); Aspartate Amino Transferase 28 Units/L (13-39); BUN/Creatinine Ratio 22 (6-26); Bilirubin,Total 0.4 mg/dL (0.3-1.0); Blood Urea Nitrogen 21 mg/dL (8-23); Calcium 9.4 mg/dL (8.6-10.3); Carbon Dioxide 30 mEq/L (23-29); Chloride 98 mEq/L (98-107); Globulin 3.8 g/dL (2.4-3.5); Glucose 125 mg/dL (70-105); Magnesium 2.1 mg/dL (1.6-2.6); Osmolality,Calculated 292 (280-300); Potassium 4.1 mEq/L (3.5-5.1); Sodium 139 mEq/L (136-145); eGFR For Non-African Americans > 60 (> 60)
[2018-04-28 02:31] LABS: Platelet Estimate Normal (Normal)
[2018-04-28] MEDS: Ipratropium/Albuterol Neb 3 ML IH SCH ×4 (03:28→22:08)
[2018-04-28 06:22] LABS: Bilirubin,Urine Negative (Negative); Blood,Urine Negative (Negative); Clarity,Urine Clear (Clear); Color,Urine Yellow (Yellow); Glucose,Urine (UA) Normal (Normal); Ketones,Urine Negative (Negative); Leukocyte Esterase,Urine Negative (Negative); Nitrite,Urine Negative (Negative); Protein,Urine Negative (Neg-Trace); Specific Gravity,Urine 1.018 (1.010-1.025); Urobilinogen,Urine Normal (Normal)
--- NOTE | 2018-04-28 06:34 | Internal Med History&Physical ---
Date of Encounter: 04/28/18 Time of Encounter: 01:15 Internal Medicine - H&P: HPI Chief complaint: BLE edema Admitted From: Emergency Dept Plans for Post Hospital Care: Home History of present illness: Mr. Bianchi is a 72 year old male who presents to the ER tonight with complaints of worsening bilateral lower extremity edema. He was seen in the cancer Center on Saturday last week and was started on low-dose Lasix and had an order to have bilateral lower extremity Dopplers performed for concerns of DVT. Because of wo rsening edema over the weekend, he came to the ER for evaluation. In the ER, he was evaluated by ER staff and admitted to hospitalist service. He did not have any Dopplers of the legs performed, however. Upon my assessment of the patient, patient states that his legs became swollen about 2 weeks ago. Prior to that, he has had no history of prior lower extremity edema. He denies any chest pain, shortness of breath, cough, or fevers. He has chronic shortness of breath and needs oxygen because of his lung cancer. That has not changed, however. He is chronically anemic and denies any blood loss whatsoever. I reviewed the Cancer Center notes, and I agree with Dr. Nieto and Dr. Duval that bilateral venous Doppler should be performed. I have a higher index of suspicion for DVT given his cancer diagnosis and acute swelling of his legs. Because Dopplers had not yet been performed, I am empirically placing him on heparin drip for concerns of DVT. Meanwhile, I ordered STAT Dopplers of his legs as soon as possible this morning. I explained this to patient and his nurse, and they both voiced understanding and agreement with the plan. Past Med Surg Social Fam HX - Past Medical History Attestation: Yes The following information was validated with the patient. Source: patient, old records reviewed, other (Cancer Center records) Medical history: cancer, COPD, coronary artery disease, hypertension, myocardial infarction, TIA Additional medical history: stage 4 lung cancer Psychiatric history: anxiety, depression - Past Surgical History Surgical History: other Additional surgical history: bronchoscopy - Social History Smoking Status: Former smoker Smokeless Tobacco Status: No Alcohol use: none Drug use: none Current living situation: Home - Independent Activity Level: Independent ambulation Recent Out of Country Travel Within the Last 8 Weeks: No - Family History Mother Family Member Ethnicity: Non- Living Status: Hx Family Cancer: Yes (Gallbladder/liver) Father Family Member Ethnicity: Non- Living Status: Hx Family Cardiac Disorders: Yes Brother Family Member Ethnicity: Non- Living Status: Sister Family Member Ethnicity: Non- Living Status: Hx Family Respiratory Disorders: Yes (COPD/Emphysema) Son Family Member Ethnicity: Non- Living Status: Hx Family Cardiac Disorders: Yes ([place]) Internal Medicine - H&P: Meds Albuterol Sulfate [Ventolin Hfa] 2 puff IH Q6H PRN 10/08/17 [History] Carvedilol [Coreg] 6.25 mg PO BIDWM 10/08/17 [History] Escitalopram [Lexapro] 5 mg PO DAILY 10/08/17 [History] Montelukast [Singulair] 10 mg PO DAILY 10/08/17 [History] Acetaminophen [Tylenol] 500 mg PO Q4HR PRN tablet 12/12/17 [Rx] Aspirin [Adult Aspirin Regimen] 81 mg PO DAILY 02/10/18 [History] Budesonide/Formoterol 160/4.5 [Symbicort 160/4.5] 2 puff IH BID #1 hfa.aer.ad 02/10/18 [Rx] Melatonin [Melatin] 3 mg PO HS 02/10/18 [History] Nitroglycerin [Nitrostat] 0.4 mg SL AD PRN 02/10/18 [History] Promethazine [Phenergan] 25 mg PO Q6HR PRN 02/10/18 [History] HydrOXYzine 10 mg PO Q6H PRN #30 tablet 03/10/18 [Rx] Lisinopril 2.5 mg PO DAILY 03/10/18 [History] Magic Mouthwash [Magic Mouthwash BLM] 10 ml PO QID PRN #400 ml 03/12/18 [Rx] Sennosides [Senna] 8.6 mg PO 1-2XD PRN #60 tablet 03/26/18 [Rx] Furosemide [Lasix] 20 mg PO DAILY #7 tablet 04/25/18 [Rx] Amoxicillin/Clavulanate [Augmentin] 875 mg PO BIDWM 04/27/18 [History] Furosemide [Lasix] 20 mg PO DAILY 04/27/18 [History] Allergy/AdvReac Type Severity Reaction Status Date / Time No Known Allergies Allergy Verified 04/25/18 15:35 - Constitutional Constitutional: fatigue, no chills, no fever(s), no weight gain, no weight loss - EENT Eyes: no blurry vision, no change in vision Nose, mouth and throat: no nasal congestion, no sore throat - Cardiovascular Cardiovascular ROS IM: dyspnea (chronic -- unchanged), edema (new over last 2 weeks), no chest pain, no orthopnea, no paroxysmal nocturnal dyspnea - Respiratory Respiratory: no cough, no hemoptysis, no chest congestion, no excessive phlegm production, no change in phlegm color - Gastrointestinal Gastrointestinal: no abdominal pain, no diarrhea, no hematemesis, no hematochezia, no melena, no nausea, no vomiting - Genitourinary Genitourinary ROS male: no dysuria, no flank pain, no hematuria - Musculoskeletal Musculoskeletal ROS IM: no arthralgias, no back pain - Integumentary Integumentary IM: no rash, no jaundice - Neurological Neurological ROS: no dizziness, no focal weakness, no frequent falls, no headache(s) - Psychiatric Psychiatric: no anxiety, no depression - Endocrine Endocrine IM: no polydipsia, no polyuria - Allergic/Immunologic Allergic/Immunologic: no GI upset with certain foods - Constitutional Vitals: Temp Pulse Resp BP Pulse Ox 97.6 F 79 14 126/68 92 04/28/18 04:10 04/28/18 04:10 04/28/18 04:10 04/28/18 04:10 04/28/18 04:10 General appearance: Present: cooperative, A&O X 3, pleasant, no acute distress, answers questions appropriately Exam: see below - Head Head exam: Present: atraumatic, normal inspection - Eye Eye exam: Present: EOMI, PERRL. Absent: scleral icterus Pupils: Present: normal accommodation - ENT ENT exam: Present: mucous membranes dry, normal exam, normal oropharynx - Neck Neck exam general surgery: Present: full ROM, supple. Absent: tenderness, nuchal rigidity, thyromegaly - Respiratory Respiratory exam: Present: CTAB, rhonchi. Absent: rales, wheezes - Cardiovascular Cardiovascular exam: Present: distant heart sounds, +S1, +S2. Absent: diastolic murmur, systolic murmur - GI/Abdominal GI/Abdominal exam: Present: normal bowel sounds, soft. Absent: hepatomegaly, mass, splenomegaly - Extremities Exam Extremities exam: Present: full ROM, pedal edema (3+ BLE ), warm, radial pulses palpable and symmetrical. Absent: calf tenderness, joint swelling - Back Exam Back exam: Absent: CVA tenderness (L), CVA tenderness (R) - Neurological Exam Neurological exam: Present: alert, CN II-XII intact, oriented X3, no focal deficits - Psychiatric Psychiatric exam: Present: normal affect, normal mood - Skin Skin exam: Present: dry, intact, warm Internal Med - H&P Results - Labs CBC & Chem 7: 04/28/18 01:47 04/28/18 01:47 Labs: Short CBC 04/27/18 04/28/18 04/28/18 Range/Units 20:43 01:47 01:47 WBC 6.8 7.0 6.8 (4.3-11.1) K/mcL Hgb 7.9 L 8.8 L 8.6 L (12.9-16.9) g/dL Hct 25.4 L 28.8 L 28.7 L (37.5-50.1) % Plt Count 330 368 384 (140-400) K/mcL Neutrophils # 6.2 6.1 (1.6-8.9) K/mcL BMP 04/27/18 04/28/18 20:43 01:47 Sodium 136 139 Potassium 4.6 4.1 Chloride 99 98 Carbon Dioxide 29 30 H BUN 20 21 Creatinine 0.92 0.97 Glucose 119 H 125 H Calcium 9.2 9.4 Liver Function 04/28/18 Range/Units 01:47 Total Bilirubin 0.4 (0.3-1.0) mg/dL AST 28 (13-39) Units/L ALT 19 (7-52) Units/L Alkaline Phosphatase 79 (34-104) Units/L Albumin 3.2 L (3.5-5.7) g/dL - Impressions ITS Impressions Chest X-Ray 04/27/18 20:36 IMPRESSION: Findings of emphysema. Stable cardiomegaly. No acute focal process. D/ / Brice Ellis MD / Brice Ellis MD Interpreting Provider: Brice Ellis MD - Diagnostic Studies Chest x-ray Status: image reviewed by me (negative except cardiomegaly) - Assessment and plan (1) Bilateral lower extremity edema Current Visit: Yes Status: Acute Assessment and plan: 1. High index of suspicion for DVT. 2. Heparin drip initiated empirically. 3. Dopplers of legs ordered ADRY this morning. 4. Repeat ECHO ordered as last ECHO was sub-optimal study. (2) Lung cancer Current Visit: Yes Status: Acute Assessment and plan: 1. Per oncology. 2. Outpatient follow up. 3. High risk for DVT/PE given lung cancer diagnosis. Qualifiers: Laterality: unspecified laterality Lung location: unspecified part of lung Qualified Code(s): C34.90 - Malignant neoplasm of unspecified part of unspecified bronchus or lung (3) Anemia Current Visit: Yes Status: Chronic Assessment and plan: 1. No report of blood loss. 2. Suspect due to chronic disease (lung cancer). 3. Monitor H/H and transfuse if necessary. Qualifiers: Anemia type: other cause Other causes of anemia: chronic disease, other Qualified Code(s): D63.8 - Anemia in other chronic diseases classified elsewhere (4) DVT prophylaxis Current Visit: Yes Status: Acute Assessment and plan: 1. Heparin drip as above.
[2018-04-28] MEDS: Budesonide/Formoterol 160/4.5 1 PUFF INH IH SCH ×2 (09:46→22:08)
[2018-04-28 12:23] LABS: Hematocrit 25.4 % (37.5-50.1); Hemoglobin 7.6 g/dL (12.9-16.9)
--- NOTE | 2018-04-28 13:53 | Internal Med Progress Note ---
<JamieadrienneKhadarjamesjoel P - Last Filed: 04/29/18 07:10> Hospitalist Progress Note - Encounter Date of Encounter: 04/29/18 Time of Encounter: 08:45 - Subjective Interval History: Mr. Bianchi is a 72 year old male who presents to the ED tonight with complaints of worsening bilateral lower extremity edema. He was seen in the cancer Center on Saturday last week and was started on low-dose Lasix and had an order to have bilateral lower extremity Dopplers performed for concerns of DVT. Because of worsening edema over the weekend, he came to the ER for evaluation. He has chronic shortness of breath and needs oxygen because of his lung cancer. Xray chest : Findings of emphysema. Stable cardiomegaly.LVEF 35-40%.Mild concentric left ventricular hypertrophy.Moderate left ventricular diastolic dysfunction.Atypical septal motion consistent with bundle branch block. Venous doppler : no Blood clot . Today during my visit, the patient was lying comfortably on the bed, he is well oriented to time, place and person, vitals are stable.he is answering question appropriately, his leg swelling has been significantly less since admission. - Exam Vitals: Temp Pulse Resp BP Pulse Ox 97.7 F 96 16 166/89 90 04/28/18 12:28 04/28/18 12:28 04/28/18 12:28 04/28/18 12:28 04/28/18 12:28 Exam: Gen: Alert, awake , Oriented to time,place and person Chest: Diminished BS b/l, No crackles, No rales, No wheezing Heart: S1S2+ RRR No Murmurs Abd: Soft, NT, BS + No organomegaly Ext: Bilateral leg edema ++ pulses are palpable, no tenderness Neuro: No focal neuro deficits Psych: Normal mood Skin: No rash - Assessment and Plan (1) Bilateral lower extremity edema Current Visit: Yes Status: Acute Assessment and Plan: The patient was presented for bilateral lower extremity edema for last weeks, getting worse recently Lower extremity Doppler negative for clot, heparin anti coagulation has been stopped, Po lasix tried Weight daily and I/O monitor Echo showed left ventricle diastolic dysfunction with ejection fraction 40 - 45% (2) CHF (congestive heart failure) Current Visit: Yes Status: Acute Assessment and Plan: This patient has bilateral leg swelling for 2 weeks and shortness of breath. Echo: LVEF 35-40%. Mild concentric left ventricular hypertrophy. Moderate left ventricular diastolic dysfunction. Xray Chest : Stable cardio megaly PO lasix given Start ; 20 mg IV lasix BID as he was Lasix 10 mg daily. (3) Lung cancer Current Visit: Yes Status: Acute Assessment and Plan: Stage IV lung cancer under treatment; Out pt oncology follow up. (4) Chronic anemia Current Visit: Yes Status: Acute Assessment and Plan: The patient has history of chronic anemia, latest hemoglobin 7.6 and hematocrit 25.4 MCv, MCHC and MCH low and RDW high - Time Spent with Patient Total time spent is greater than 50% in coordination of care (as documented) at patient's floor/unit and/or counseling patient: Internal Medicine: Result - Labs CBC & Chem 7: 04/28/18 23:53 04/28/18 01:47 Labs: Short CBC 04/27/18 04/28/18 04/28/18 Range/Units 20:43 01:47 01:47 WBC 6.8 7.0 6.8 (4.3-11.1) K/mcL Hgb 7.9 L 8.8 L 8.6 L (12.9-16.9) g/dL Hct 25.4 L 28.8 L 28.7 L (37.5-50.1) % Plt Count 330 368 384 (140-400) K/mcL Neutrophils # 6.2 6.1 (1.6-8.9) K/mcL 04/28/18 Range/Units 12:07 WBC (4.3-11.1) K/mcL Hgb 7.6 L (12.9-16.9) g/dL Hct 25.4 L (37.5-50.1) % Plt Count (140-400) K/mcL Neutrophils # (1.6-8.9) K/mcL BMP 04/27/18 04/28/18 20:43 01:47 Sodium 136 139 Potassium 4.6 4.1 Chloride 99 98 Carbon Dioxide 29 30 H BUN 20 21 Creatinine 0.92 0.97 Glucose 119 H 125 H Calcium 9.2 9.4 Liver Function 04/28/18 Range/Units 01:47 Total Bilirubin 0.4 (0.3-1.0) mg/dL AST 28 (13-39) Units/L ALT 19 (7-52) Units/L Alkaline Phosphatase 79 (34-104) Units/L Albumin 3.2 L (3.5-5.7) g/dL Urine 04/28/18 Range/Units 06:10 Urine Color Yellow (Yellow) Urine Clarity Clear (Clear) Urine pH 7.0 (5.0-8.0) pH Units Ur Specific Recluse 1.018 (1.010-1.025) Urine Protein Negative (Neg-Trace) mg/dL Urine Glucose (UA) Normal (Normal) mg/dL - ABG Interpretation ABG results: PT/INR, D-dimer PT 11.9 Seconds (9.4-12.1) 04/28/18 01:47 - Impressions Impressions Chest X-Ray 04/27/18 20:36 IMPRESSION: Findings of emphysema. Stable cardiomegaly. No acute focal process. D/ / Brice Ellis MD / Brice Ellis MD Interpreting Provider: Brice Ellis MD Echocardiogram 04/28/18 01:26 Impressions: LVEF 35-40%. Mild concentric left ventricular hypertrophy. Moderate left ventricular diastolic dysfunction. Atypical septal motion consistent with bundle branch block. Normal right ventricular structure and function. Moderately dilated right atrium. Mild-moderate tricuspid regurgitation. Mild pulmonary hypertension. Left Ventricular Wall Motion: Rest Echo Findings The mid inferior, basal inferior septal, mid inferior lateral and basal inferior lateral davenport were hypokinetic. All other wall segments showed normal motion. Findings: Study Quality * Technically adequate exam. ECG Findings * Sinus rhythm with BBB. Left Ventricle * LVEF 35-40%. * Mild concentric left ventricular hypertrophy. * Moderate left ventricular diastolic dysfunction. * Atypical septal motion consistent with bundle branch block. * Moderate segmental left ventricular systolic dysfunction. Right Ventricle * Normal right ventricular structure and function. Left Atrium * Normal left atrial size. Right Atrium * Moderately dilated right atrium. Interatrial Septum * No evidence of PFO by color Doppler. Aortic Valve * No aortic stenosis. * No aortic regurgitation. * Aortic valve not well visualized. * Trileaflet aortic valve. Mitral Valve * No mitral stenosis. * Trace mitral regurgitation. * Normal mitral valve structure. Tricuspid Valve * Normal tricuspid valve structure. * No tricuspid stenosis. * Mild-moderate tricuspid regurgitation. * Mild pulmonary hypertension. * Estimated RVSP is 40 mmHg. * Estimated RA pressure is 8 mmHg. Pulmonic Valve * Normal pulmonic valve structure. * No pulmonic regurgitation. Aorta * Normally sized aortic root. Pericardium * The pericardium appears normal. IVC * Normal IVC dimensions and inspiratory collapse. Consult Discharge Plan - Plan Referrals: NONE,PCP [Primary Care Provider] - <Chelsy Wellington - Last Filed: 04/29/18 12:54> Hospitalist Progress Note - Encounter Date of Encounter: 04/28/18 - Exam Vitals: Temp Pulse Resp BP Pulse Ox 97.9 F 108 18 113/67 93 04/29/18 11:36 04/29/18 11:36 04/29/18 11:36 04/29/18 11:36 04/29/18 11:36 - Assessment and Plan (1) Anemia Current Visit: Yes Status: Chronic (2) Bilateral lower extremity edema Current Visit: Yes Status: Acute (3) Lung cancer Current Visit: Yes Status: Acute (4) DVT prophylaxis Current Visit: Yes Status: Acute - Time Spent with Patient Total time spent is greater than 50% in coordination of care (as documented) at patient's floor/unit and/or counseling patient: Internal Medicine: Result - Labs CBC & Chem 7: 04/29/18 06:54 04/28/18 01:47 Labs: Short CBC 04/28/18 04/28/18 04/29/18 Range/Units 18:12 23:53 06:54 Hgb 7.9 L 7.9 L 7.6 L (12.9-16.9) g/dL Hct 26.1 L 25.7 L 24.6 L (37.5-50.1) % - ABG Interpretation ABG results: PT/INR, D-dimer PT 11.9 Seconds (9.4-12.1) 04/28/18 01:47 - Attending Attestation I examined this patient and my medical decision-making was reviewed with the Resident Physician Dr. Lyles on 04/28/18. I agree with the documented findings, disposition and treatment plan as described except to the extent set forth below. Mr. Bianchi is a 72 y/o M with known PMH of HTN, COPD, CAD, TIA and Chronic CHF pt presented to ER b/l LE swelling. He was give IV lasix 1 dose, pt stated he is feeling better now. Denied any CP / SOB. Still has significant b/l LE edema a/p 1. Acute systolic CHF exacerbation 2.B/l LE edema ruled out DVT d/c Heparin gtt 2D Echo showed LVEF 35-40% Started him on IV Lasix cont close monitoring <Yogi Lyles P - Last Filed: 04/29/18 07:10> (3) Lung cancer Qualifiers: Laterality: unspecified laterality Lung location: unspecified part of lung Qualified Code(s): C34.90 - Malignant neoplasm of unspecified part of unspecified bronchus or lung <Chelsy Wellington - Last Filed: 04/29/18 12:54> (1) Anemia Qualifiers: Anemia type: other cause Other causes of anemia: chronic disease, other Qualified Code(s): D63.8 - Anemia in other chronic diseases classified elsewhere (3) Lung cancer Qualifiers: Laterality: unspecified laterality Lung location: unspecified part of lung Qualified Code(s): C34.90 - Malignant neoplasm of unspecified part of unspecified bronchus or lung
[2018-04-28] MEDS: *HR* Heparin 5,000 UNIT/ML VIAL SQ SCH ×2 (16:00→21:40)
[2018-04-28] MEDS: Furosemide 20 MG/2 ML VIAL IVP SCH ×2 (16:01→21:49)
[2018-04-28] MEDS ORDERED: Magic Mouthwash 10 ML UD Cup PO PRN (16:22)
[2018-04-28 18:29] LABS: Hematocrit 26.1 % (37.5-50.1); Hemoglobin 7.9 g/dL (12.9-16.9)
[2018-04-28] MEDS: predniSONE 10 MG TABLET PO SCH (18:37)
[2018-04-29 00:11] LABS: Hematocrit 25.7 % (37.5-50.1); Hemoglobin 7.9 g/dL (12.9-16.9)
[2018-04-29] MEDS: Ipratropium/Albuterol Neb 3 ML IH SCH ×4 (04:36→21:43)
[2018-04-29] MEDS: *HR* Heparin 5,000 UNIT/ML VIAL SQ SCH ×3 (06:00→20:44)
[2018-04-29 07:28] LABS: Hematocrit 24.6 % (37.5-50.1); Hemoglobin 7.6 g/dL (12.9-16.9)
[2018-04-29] MEDS: Aspirin Enteric Coated 81 MG Tablet PO SCH (08:44)
[2018-04-29] MEDS: Fluticasone Propionate Nasal 50 MCG/SPRAY BOTTLE NS SCH (08:45)
[2018-04-29] MEDS: Furosemide 20 MG/2 ML VIAL IVP SCH ×2 (08:45→17:45)
[2018-04-29] MEDS ORDERED: NON-FORMULARY MEDICATION 1 EACH EACH (Esomeprazole Magnesium [Nexium] 40 MG) PO SCH (09:00)
[2018-04-29] MEDS ORDERED: Budesonide/Formoterol 160/4.5 1 PUFF INH IH SCH (09:00)
[2018-04-29] MEDS: Budesonide/Formoterol 160/4.5 1 PUFF INH IH SCH ×2 (10:26→21:43)
[2018-04-29 13:24] LABS: Hematocrit 27.7 % (37.5-50.1); Hemoglobin 8.6 g/dL (12.9-16.9)
--- NOTE | 2018-04-29 16:26 | Internal Med Progress Note ---
Hospitalist Progress Note - Encounter Date of Encounter: 04/29/18 Time of Encounter: 16:22 - Subjective Interval History: Seen and examined at bedside. Patient is new to me, information obtained from chart review and patient report. Patient says he feels improved from arrival. Still has some lower extremity edema and shortness of breath but overall s ignificantly improved. He needs more IV Lasix and 1 more night in the hospital. - Exam Vitals: Temp Pulse Resp BP Pulse Ox 97.7 F 75 18 121/78 96 04/29/18 15:37 04/29/18 15:37 04/29/18 16:15 04/29/18 15:37 04/29/18 16:15 Exam: Gen: Alert, awake , Oriented to time,place and person Chest: Diminished BS b/l, No crackles, No rales, No wheezing Heart: S1S2+ RRR No Murmurs Abd: Soft, NT, BS + No organomegaly Ext: moderate bilateral leg edema ++ pulses are palpable, no tenderness Neuro: No focal neuro deficits Psych: Normal mood Skin: No rash - Assessment and Plan (1) Acute on chronic diastolic heart failure Current Visit: Yes Status: Acute Assessment and Plan: has known diastolic dysfunction. Now with worsening shortness of breath and lower extremity edema. 04/29/2017 TTE with EF 5-40%, moderate diastolic dysfunction (simialr to 04/2017 TTE). Continue diuresis with IV Lasix. Strict I's and O's and daily weights. (2) Bilateral lower extremity edema Current Visit: Yes Status: Acute Assessment and Plan: recently started on lasix at home per oncology for lower extremity edema. Presented with worsening bilateral pitting edema. Bilateral lower extremity venous Dopplers negative for DVT. Edema significantly improved with IV Lasix. Continue IV Lasix for now, encourage elevation (3) Anemia Current Visit: Yes Status: Chronic Assessment and Plan: suspect anemia of chronic disease. No active bleeding. Hgb stable in the 8s (baseline appears to be 8-9 since 10/2017). Monitor repeat H&H (4) URI (upper respiratory infection) Current Visit: Yes Status: Acute Assessment and Plan: possible. ON Augmentin and prednisone for unknown reasons. Patient specifically asked on 04/29/2018 and he is unaware is why he is on an ionic or steroids. Does report a recent productive cough. Possibly secondary to URI/bronchitis. ECW and recent summary visits reviewed and no documentation found as to why patient is on antibiotic and steroids. CXR unremarkable. Afebrile and no elevated to VBC. Cont steroids and Augmentin for now. Consider stopping prior to discharge asymptomatic. (5) Lung cancer Current Visit: Yes Status: Acute Assessment and Plan: per hx. S/p radiation and chemotherapy. Follow-up with oncology outpatient as previously planned (6) DVT prophylaxis Current Visit: Yes Status: Acute Assessment and Plan: heparin as he is high risk with history of malignancy - Time Spent with Patient Total time spent is greater than 50% in coordination of care (as documented) at patient's floor/unit and/or counseling patient: Internal Medicine: Result - Labs CBC & Chem 7: 04/29/18 12:49 04/28/18 01:47 Labs: Short CBC 04/28/18 04/28/18 04/29/18 Range/Units 18:12 23:53 06:54 Hgb 7.9 L 7.9 L 7.6 L (12.9-16.9) g/dL Hct 26.1 L 25.7 L 24.6 L (37.5-50.1) % 04/29/18 Range/Units 12:49 Hgb 8.6 L (12.9-16.9) g/dL Hct 27.7 L (37.5-50.1) % - ABG Interpretation ABG results: PT/INR, D-dimer PT 11.9 Seconds (9.4-12.1) 04/28/18 01:47 Consult Discharge Plan - Plan Referrals: NONE,PCP [Primary Care Provider] - __ (3) Anemia Qualifiers: Anemia type: other cause Other causes of anemia: chronic disease, other Qualified Code(s): D63.8 - Anemia in other chronic diseases classified elsewhere (5) Lung cancer Qualifiers: Laterality: unspecified laterality Lung location: unspecified part of lung Qualified Code(s): C34.90 - Malignant neoplasm of unspecified part of unspecified bronchus or lung
[2018-04-29] MEDS: predniSONE 10 MG TABLET PO SCH (17:45)
[2018-04-30] MEDS: Ipratropium/Albuterol Neb 3 ML IH SCH ×4 (04:23→22:01)
[2018-04-30 04:47] LABS: Hematocrit 25.1 % (37.5-50.1); Hemoglobin 7.6 g/dL (12.9-16.9); Mean Corpuscular HGB Conc 30.3 g/dL (31.6-35.5); Mean Corpuscular Hemoglobin 24.4 pg (28.0-33.3); Mean Corpuscular Volume 80.4 fL (83.0-100.0); Mean Platelet Volume 9.3 fL (9.4-12.4); Platelet Count 341 K/mcL (140-400); Red Blood Count 3.12 M/mcL (4.19-5.50); Red Cell Distribution Width 26.7 % (11.5-14.5)
[2018-04-30 05:09] LABS: Alanine Aminotransferase 17 Units/L (7-52); Albumin/Globulin Ratio 0.9 (1.1-2.2); Alkaline Phosphatase 70 Units/L (34-104); Aspartate Amino Transferase 21 Units/L (13-39); BUN/Creatinine Ratio 18 (6-26); Bilirubin,Total 0.3 mg/dL (0.3-1.0); Blood Urea Nitrogen 24 mg/dL (8-23); Carbon Dioxide 31 mEq/L (23-29); Chloride 99 mEq/L (98-107); Globulin 3.5 g/dL (2.4-3.5); Glucose 126 mg/dL (70-105); Osmolality,Calculated 296 (280-300); Potassium 4.6 mEq/L (3.5-5.1); Sodium 140 mEq/L (136-145); Total Protein 6.5 g/dL (6.4-8.9); eGFR For Non-African Americans 53 (> 60)
[2018-04-30] MEDS: *HR* Heparin 5,000 UNIT/ML VIAL SQ SCH ×3 (05:59→20:34)
[2018-04-30] MEDS: Furosemide 20 MG/2 ML VIAL IVP SCH ×2 (08:04→16:19)
[2018-04-30] MEDS: Aspirin Enteric Coated 81 MG Tablet PO SCH (08:04)
[2018-04-30] MEDS: Fluticasone Propionate Nasal 50 MCG/SPRAY BOTTLE NS SCH (08:05)
[2018-04-30] MEDS: Budesonide/Formoterol 160/4.5 1 PUFF INH IH SCH ×2 (10:48→22:02)
--- NOTE | 2018-04-30 17:07 | Internal Med Progress Note ---
Hospitalist Progress Note - Encounter Date of Encounter: 04/30/18 Time of Encounter: 11:00 - Subjective Interval History: Patient is a 72-year-old male who presented with worsening bilateral lower extremity edema found to have acute on chronic combined systolic/diastolic heart failure Patient getting very close to euvolemic on IV diuresis; will require 24-48 more hours of IV diuresis - Exam Vitals: Temp Pulse Resp BP Pulse Ox 97.9 F 74 18 139/81 92 04/30/18 14:51 04/30/18 14:51 04/30/18 16:30 04/30/18 14:51 04/30/18 16:30 Exam: Gen.: Nonacute distress, alert and oriented 3 ENT: Mucosal membranes moist Respiratory: Lungs are clear to auscultation bilaterally without any wheezing rhonchi or rales Cardiovascular: Normal S1 and S2 regular rate rhythm no murmurs rubs or gallops Abdomen: Soft, nontender and nondistended with positive bowel sounds Extremities: No lower extremity edema Skin: Normal color - Assessment and Plan (1) Acute on chronic diastolic heart failure Current Visit: Yes Status: Acute Assessment and Plan: She reports of recently started on lasix at home per oncology for lower extremity edema and presented to the ER resented with worsening bilateral pitting edema. Echocardiogram showed LVEF of 35-40% with moderate left ventricular diastolic dysfunction Edema significantly improved with IV Lasix. Continue another 24-48 hours of IV Lasix for now, encourage elevation (2) Bilateral lower extremity edema Current Visit: Yes Status: Acute Assessment and Plan: Secondary to and management as above Bilateral lower extremity venous Dopplers negative for DVT. (3) Anemia Current Visit: Yes Status: Chronic Assessment and Plan: Suspect anemia of chronic disease. Hgb at 7.6 this morning (baseline appears to be 8-9 since 10/2017). Will continue to monitor H&H (4) Lung cancer Current Visit: Yes Status: Acute Assessment and Plan: S/p radiation and chemotherapy. Follow-up with oncology outpatient as previously planned (5) URI (upper respiratory infection) Current Visit: Yes Status: Acute Assessment and Plan: Will continue Augmentin for URI DVT Prophylaxis: Heparin subcutaneous - Time Spent with Patient Total time spent is greater than 50% in coordination of care (as documented) at patient's floor/unit and/or counseling patient: Internal Medicine: Result - Labs CBC & Chem 7: 04/30/18 04:19 04/30/18 04:19 Labs: Short CBC 04/30/18 Range/Units 04:19 WBC 5.6 (4.3-11.1) K/mcL Hgb 7.6 L (12.9-16.9) g/dL Hct 25.1 L (37.5-50.1) % Plt Count 341 (140-400) K/mcL BMP 04/30/18 04:19 Sodium 140 Potassium 4.6 Chloride 99 Carbon Dioxide 31 H BUN 24 H Creatinine 1.33 H Glucose 126 H Calcium 9.0 Liver Function 04/30/18 Range/Units 04:19 Total Bilirubin 0.3 (0.3-1.0) mg/dL AST 21 (13-39) Units/L ALT 17 (7-52) Units/L Alkaline Phosphatase 70 (34-104) Units/L Albumin 3.0 L (3.5-5.7) g/dL - ABG Interpretation ABG results: PT/INR, D-dimer PT 11.9 Seconds (9.4-12.1) 04/28/18 01:47 Consult Discharge Plan - Plan Referrals: NONE,PCP [Primary Care Provider] - (3) Anemia Qualifiers: Anemia type: other cause Other causes of anemia: chronic disease, other Qualified Code(s): D63.8 - Anemia in other chronic diseases classified elsewhere (4) Lung cancer Qualifiers: Laterality: unspecified laterality Lung location: unspecified part of lung Qualified Code(s): C34.90 - Malignant neoplasm of unspecified part of unspecified bronchus or lung
[2018-05-01] MEDS: Ipratropium/Albuterol Neb 3 ML IH SCH ×4 (04:02→22:41)
[2018-05-01 04:36] LABS: Hemoglobin 8.2 g/dL (12.9-16.9); Mean Corpuscular HGB Conc 30.4 g/dL (31.6-35.5); Mean Corpuscular Hemoglobin 24.9 pg (28.0-33.3); Mean Corpuscular Volume 82.1 fL (83.0-100.0); Mean Platelet Volume 9.3 fL (9.4-12.4); Platelet Count 338 K/mcL (140-400); Red Blood Count 3.29 M/mcL (4.19-5.50); Red Cell Distribution Width 26.7 % (11.5-14.5)
[2018-05-01 04:58] LABS: Alanine Aminotransferase 17 Units/L (7-52); Albumin 2.8 g/dL (3.5-5.7); Albumin/Globulin Ratio 0.9 (1.1-2.2); Alkaline Phosphatase 67 Units/L (34-104); Aspartate Amino Transferase 22 Units/L (13-39); BUN/Creatinine Ratio 24 (6-26); Bilirubin,Total 0.3 mg/dL (0.3-1.0); Blood Urea Nitrogen 30 mg/dL (8-23); Calcium 8.7 mg/dL (8.6-10.3); Carbon Dioxide 31 mEq/L (23-29); Chloride 103 mEq/L (98-107); Globulin 3.1 g/dL (2.4-3.5); Glucose 93 mg/dL (70-105); Osmolality,Calculated 290 (280-300); Potassium 4.5 mEq/L (3.5-5.1); Sodium 137 mEq/L (136-145); Total Protein 5.9 g/dL (6.4-8.9); eGFR For Non-African Americans 56 (> 60)
[2018-05-01] MEDS: *HR* Heparin 5,000 UNIT/ML VIAL SQ SCH ×3 (06:42→22:03)
[2018-05-01] MEDS: Fluticasone Propionate Nasal 50 MCG/SPRAY BOTTLE NS SCH (08:50)
[2018-05-01] MEDS: Aspirin Enteric Coated 81 MG Tablet PO SCH (08:50)
[2018-05-01] MEDS: Furosemide 20 MG/2 ML VIAL IVP SCH ×2 (08:50→17:50)
--- NOTE | 2018-05-01 10:30 | Internal Med Progress Note ---
Hospitalist Progress Note - Encounter Date of Encounter: 05/01/18 Time of Encounter: 11:00 - Subjective Interval History: Patient is a 72-year-old male who presented with worsening bilateral lower extremity edema found to have acute on chronic combined systolic/diastolic heart failure Patient getting very close to euvolemic on IV diuresis Will require 24more hours of IV diuresis Plan [facility] - Exam Vitals: Temp Pulse Resp BP Pulse Ox 98.0 F 79 16 116/74 97 05/01/18 07:25 05/01/18 07:25 05/01/18 07:25 05/01/18 07:25 05/01/18 07:25 Exam: Gen.: Nonacute distress, alert and oriented 3 ENT: Mucosal membranes moist Respiratory: Lungs are clear to auscultation bilaterally without any wheezing rhonchi or rales Cardiovascular: Normal S1 and S2 regular rate rhythm no murmurs rubs or gallops Abdomen: Soft, nontender and nondistended with positive bowel sounds Extremities: No lower extremity edema Skin: Normal color - Assessment and Plan (1) Acute on chronic diastolic heart failure Current Visit: Yes Status: Acute Assessment and Plan: She reports of recently started on lasix at home per oncology for lower extremity edema and presented to the ER resented with worsening bilateral za ing edema. Echocardiogram showed LVEF of 35-40% with moderate left ventricular diastolic dysfunction Edema significantly improved with IV Lasix. Continue another 24 hours of IV Lasix for now, encourage elevation (2) Bilateral lower extremity edema Current Visit: Yes Status: Acute Assessment and Plan: Secondary to and management as above Bilateral lower extremity venous Dopplers negative for DVT. (3) Anemia Current Visit: Yes Status: Chronic Assessment and Plan: Suspect anemia of chronic disease. Hgb at 8.2 this morning from 7.6 yesterday (baseline appears to be 8-9 since 10/2017). Will continue to monitor H&H (4) Lung cancer Current Visit: Yes Status: Acute Assessment and Plan: S/p radiation and chemotherapy. Follow-up with oncology outpatient as previously planned (5) URI (upper respiratory infection) Current Visit: Yes Status: Acute Assessment and Plan: Will continue Augmentin for URI DVT Prophylaxis: Heparin subcutaneous - Time Spent with Patient Total time spent is greater than 50% in coordination of care (as documented) at patient's floor/unit and/or counseling patient: Internal Medicine: Result - Labs CBC & Chem 7: 05/01/18 04:22 05/01/18 04:22 Labs: Short CBC 05/01/18 Range/Units 04:22 WBC 6.0 (4.3-11.1) K/mcL Hgb 8.2 L (12.9-16.9) g/dL Hct 27.0 L (37.5-50.1) % Plt Count 338 (140-400) K/mcL BMP 05/01/18 04:22 Sodium 137 Potassium 4.5 Chloride 103 Carbon Dioxide 31 H BUN 30 H Creatinine 1.25 Glucose 93 Calcium 8.7 Liver Function 05/01/18 Range/Units 04:22 Total Bilirubin 0.3 (0.3-1.0) mg/dL AST 22 (13-39) Units/L ALT 17 (7-52) Units/L Alkaline Phosphatase 67 (34-104) Units/L Albumin 2.8 L (3.5-5.7) g/dL - ABG Interpretation ABG results: PT/INR, D-dimer PT 11.9 Seconds (9.4-12.1) 04/28/18 01:47 Consult Discharge Plan - Plan Referrals: Darin Nieto MD [Partnered Physician] - 05/12/18 8:30 am Mary Barnhart CNP [Advanced Practice Nurse] - 05/08/18 1:15 pm (3) Anemia Qualifiers: Anemia type: other cause Other causes of anemia: chronic disease, other Qualified Code(s): D63.8 - Anemia in other chronic diseases classified elsewhere (4) Lung cancer Qualifiers: Laterality: unspecified laterality Lung location: unspecified part of lung Qualified Code(s): C34.90 - Malignant neoplasm of unspecified part of unspecified bronchus or lung
[2018-05-01] MEDS: Budesonide/Formoterol 160/4.5 1 PUFF INH IH SCH ×2 (11:59→22:41)
[2018-05-02] MEDS: Ipratropium/Albuterol Neb 3 ML IH SCH ×3 (04:04→15:48)
[2018-05-02 04:35] LABS: Hematocrit 26.8 % (37.5-50.1); Hemoglobin 8.3 g/dL (12.9-16.9); Mean Corpuscular Hemoglobin 25.2 pg (28.0-33.3); Mean Corpuscular Volume 81.2 fL (83.0-100.0); Mean Platelet Volume 9.5 fL (9.4-12.4); Platelet Count 336 K/mcL (140-400); Red Cell Distribution Width 27.3 % (11.5-14.5)
[2018-05-02 04:57] LABS: Alanine Aminotransferase 17 Units/L (7-52); Alkaline Phosphatase 63 Units/L (34-104); Aspartate Amino Transferase 20 Units/L (13-39); BUN/Creatinine Ratio 28 (6-26); Bilirubin,Total 0.4 mg/dL (0.3-1.0); Blood Urea Nitrogen 33 mg/dL (8-23); Calcium 8.7 mg/dL (8.6-10.3); Carbon Dioxide 29 mEq/L (23-29); Chloride 99 mEq/L (98-107); Globulin 2.9 g/dL (2.4-3.5); Glucose 95 mg/dL (70-105); Osmolality,Calculated 289 (280-300); Potassium 4.6 mEq/L (3.5-5.1); Sodium 136 mEq/L (136-145); Total Protein 5.9 g/dL (6.4-8.9); eGFR For Non-African Americans 60 (> 60)
[2018-05-02] MEDS: *HR* Heparin 5,000 UNIT/ML VIAL SQ SCH ×2 (06:12→13:34)
[2018-05-02] MEDS: Aspirin Enteric Coated 81 MG Tablet PO SCH (08:01)
[2018-05-02] MEDS: Fluticasone Propionate Nasal 50 MCG/SPRAY BOTTLE NS SCH (08:02)
[2018-05-02] MEDS ORDERED: Furosemide 20 MG TABLET PO SCH (09:00)
[2018-05-02 11:21] VITALS: BP 113/72
[2018-05-02] MEDS: Budesonide/Formoterol 160/4.5 1 PUFF INH IH SCH (11:36)
--- NOTE | 2018-05-02 14:28 | Discharge Summary ---
- NOTES TO OUTPATIENT PROVIDER Notes to Outpatient Provider: none Orders not resulted at time of discharge: Pending orders 05/03/18 04:00 CMP [Comprehensive Metabolic Panel] AM 0400 Complete Blood Count w/o Diff [HEME] AM 0400 05/04/18 04:00 CMP [Comprehensive Metabolic Panel] AM 0400 Complete Blood Count w/o Diff [HEME] AM 0400 Date of Encounter: 05/02/18 Time of Encounter: 11:00 - Discharge Diagnosis (1) Acute on chronic diastolic heart failure Priority: Primary Status: Acute (2) Bilateral lower extremity edema Priority: Primary Status: Acute (3) Anemia Priority: Secondary Status: Chronic Qualifiers: Anemia type: other cause Other causes of anemia: chronic disease, other Qualified Code(s): D63.8 - Anemia in other chronic diseases classified elsewhere (4) Lung cancer Priority: Secondary Status: Acute Qualifiers: Laterality: unspecified laterality Lung location: unspecified part of lung Qualified Code(s): C34.90 - Malignant neoplasm of unspecified part of unspecified bronchus or lung (5) URI (upper respiratory infection) Priority: Secondary Status: Acute Qualifiers: Qualified Code(s): J06.9 - Acute upper respiratory infection, unspecified Hospital course: Patient is a 72-year-old male with past medical history significant for COPD, coronary arterial disease, hypertension mood disorder and TIA who presented due to bilateral lower extremity edema. He was seen in the cancer Center on Saturday last week and was started on low-dose Lasix and had an order to have bilateral lower extremity Dopplers performed for concerns of DVT. Because of worsening edema over the weekend, he came to the ER for evaluation. In the ER, he was evaluated by ER staff and admitted to hospitalist service for management of acute on chronic diastolic heart failure. Patients hospital stay her extremity edema resolved with IV diuresis. Bilateral lower extremity venous Dopplers were negative for DVT. Patient is medically stable to [facility] to [facility] for [facility]. - Time Spent with Patient Total time spent providing and/or coordinating discharge services: Less than 30 minutes - Discharge Medications Home Medications: Albuterol Sulfate [Ventolin Hfa] 2 puff IH Q6H PRN 10/08/17 [History] Carvedilol [Coreg] 6.25 mg PO BID 10/08/17 [History] Escitalopram [Lexapro] 5 mg PO DAILY 10/08/17 [History] Montelukast [Singulair] 10 mg PO QPM 10/08/17 [History] Acetaminophen [Tylenol] 500 mg PO Q4HR PRN tablet 12/12/17 [Rx] Nitroglycerin [Nitrostat] 0.4 mg SL AD PRN 02/10/18 [History] HydrOXYzine 10 mg PO Q6H PRN #30 tablet 03/10/18 [Rx] Magic Mouthwash [Magic Mouthwash BLM] 10 ml PO QID PRN #400 ml 03/12/18 [Rx] Sennosides [Senna] 8.6 mg PO 1-2XD PRN #60 tablet 03/26/18 [Rx] Furosemide [Lasix] 20 mg PO DAILY #7 tablet 04/25/18 [Rx] Amoxicillin/Clavulanate [Augmentin] 875 mg PO BIDWM 04/27/18 [History] Aspirin [Lo-Dose Aspirin EC] 81 mg PO DAILY 04/28/18 [History] Atorvastatin [Lipitor] 40 mg PO DAILY 04/28/18 [History] Budesonide/Formoterol 160/4.5 [Symbicort 160/4.5] 2 puff IH DAILY 04/28/18 [History] Esomeprazole Magnesium [Nexium] 40 mg PO DAILY 04/28/18 [History] Fluticasone Propionate Nasal [Flonase] 2 spray NS DAILY 04/28/18 [History] Lisinopril [Zestril] 10 mg PO DAILY 04/28/18 [History] predniSONE [PredniSONE] 10 mg PO TAPER 04/28/18 [History] Ferrous Sulfate 325 mg PO BIDWM tablet 05/02/18 [Rx] Allergies/Adverse Reactions: Allergy/AdvReac Type Severity Reaction Status Date / Time No Known Allergies Allergy Verified 04/28/18 14:16 Date of admission: 04/29/18 17:05 Primary care physician: PCP NONE Consults: 04/27/18 22:54 Consult to Pack Press Operator [CONS] Routine Reason for SW Consult: Has Passport & [facility]. Discharge planning 04/28/18 13:14 Consult to Nurse Navigator [CONS] Routine Comment: CHF 04/28/18 14:03 Consult to Physical Therapy [CONS] Routine Comment: Evaluate, develop and implement POC Reason for Consult: generalized weakness Does patient have active BEDREST order?: No Is patient medically & hemodynamically stable?: Yes Patient assessed for mobility or mobilized this visit?: Yes 04/28/18 14:04 Consult to Occupational Therapy [CONS] Routine Comment: Evaluate, develop and implement POC Reason for Consult: weakness Does patient have active BEDREST order?: Yes Is patient medically & hemodynamically stable?: Yes Patient assessed for mobility or mobilized this visit?: No - Constitutional Vitals: Temp Pulse Resp BP Pulse Ox 98.4 F 83 17 113/72 95 05/02/18 11:21 05/02/18 11:21 05/02/18 11:38 05/02/18 11:21 05/02/18 11:38 General appearance: Present: cooperative, A&O X 3, pleasant, no acute distress, answers questions appropriately Exam: Gen.: Nonacute distress, alert and oriented 3 Skin: Normal color - Patient Status Disposition: Transfer SNF Condition: Good - Discharge Instructions Instructions: Heart Failure (DC) Follow Up With: Darin Nieto MD [Partnered Physician] - 05/12/18 8:30 am Mary Barnhart CNP [Advanced Practice Nurse] - 05/08/18 1:15 pm Additional Instructions: Follow-up appointments: If there is not an appointment listed below, please call your physician and schedule a follow-up appointment. If you have congestive heart failure and your symptoms return, make an appointment with your physician. Medication List: Carry an up to date list of medications you are taking at all time. We have given you an updated medication list including any new medications that you have been prescribed. Please provide that list to your primary provider Symptoms: If your condition changes or you experience any of the following symptoms, notify your physician immediately: Unusual or worsening pain, fever, persistent nausea and vomiting, bleeding, increase in swelling (especially in your legs), sudden weight gain, extreme dizziness, chest pain, increased drainage or redness from a wound or incision. Go to the emergency department if you experience a problem with breathing. Weights: If you have a history of swelling or shortness of breath, weigh yourself daily and notify your physician if you have a weight gain of two or more pounds in one day or 5 or more pounds in a week. If you experience any of the warning signs for stroke: Sudden numbness or weakness of the face, arm or leg; especially on one side of the body, sudden confusion, trouble speaking or understanding, sudden trouble seeing in one or both eyes, sudden trouble walking, dizziness, loss of balance or coordination, sudden sever headache with no cause; Call 911 or go to the emergency room. Stroke is a medical emergency. Some risk factors for stroke: Age, cigarette smoking, diabetes, excessive alcohol consumption, family history, high blood pressure, overweight, physical inactivity, prior stroke, heart attack, diagnosis of carotid artery stenosis or other artery disease. If you smoke, STOP: Smoking or tobacco use significantly increases your risk of heart and lung disease. Your chance of disease greatly increases if you continue to smoke. For more information, call the [place] tobacco quit line for smoking cessation -NOW ( )
--- NOTE | 2018-05-02 14:28 | Physician Discharge Referral ---
ExtendedCare Referral Info Institutional Level of Care: Skilled - Diagnosis (1) Acute on chronic diastolic heart failure Status: Acute (2) Bilateral lower extremity edema Status: Acute (3) Anemia Status: Chronic (4) Lung cancer Status: Acute (5) URI (upper respiratory infection) Status: Acute - Transfer Medications Home Medications: Albuterol Sulfate [Ventolin Hfa] 2 puff IH Q6H PRN 10/08/17 [History] Carvedilol [Coreg] 6.25 mg PO BID 10/08/17 [History] Escitalopram [Lexapro] 5 mg PO DAILY 10/08/17 [History] Montelukast [Singulair] 10 mg PO QPM 10/08/17 [History] Acetaminophen [Tylenol] 500 mg PO Q4HR PRN tablet 12/12/17 [Rx] Nitroglycerin [Nitrostat] 0.4 mg SL AD PRN 02/10/18 [History] HydrOXYzine 10 mg PO Q6H PRN #30 tablet 03/10/18 [Rx] Magic Mouthwash [Magic Mouthwash BLM] 10 ml PO QID PRN #400 ml 03/12/18 [Rx] Sennosides [Senna] 8.6 mg PO 1-2XD PRN #60 tablet 03/26/18 [Rx] Furosemide [Lasix] 20 mg PO DAILY #7 tablet 04/25/18 [Rx] Amoxicillin/Clavulanate [Augmentin] 875 mg PO BIDWM 04/27/18 [History] Aspirin [Lo-Dose Aspirin EC] 81 mg PO DAILY 04/28/18 [History] Atorvastatin [Lipitor] 40 mg PO DAILY 04/28/18 [History] Budesonide/Formoterol 160/4.5 [Symbicort 160/4.5] 2 puff IH DAILY 04/28/18 [History] Esomeprazole Magnesium [Nexium] 40 mg PO DAILY 04/28/18 [History] Fluticasone Propionate Nasal [Flonase] 2 spray NS DAILY 04/28/18 [History] Lisinopril [Zestril] 10 mg PO DAILY 04/28/18 [History] predniSONE [PredniSONE] 10 mg PO TAPER 04/28/18 [History] Ferrous Sulfate 325 mg PO BIDWM tablet 05/02/18 [Rx] Allergies/Adverse Reactions: Allergy/AdvReac Type Severity Reaction Status Date / Time No Known Allergies Allergy Verified 04/28/18 14:16 - Respiratory Orders Smoking Cessation: Smoking cessation has been advised. For more information, call the [place] Tobacco Quit Line at 9-187-WIFI-NOW. CERTIFICATION: I certify that the transfer of the above named patient to an Extended Care Facility is necessary for the continuing treatment of the diagnosis listed. The above information is true and accurate reflection of patient's current condition. Confidential - Redisclosure prohibited without a patient's written consent.
== END 2018-05-02 16:50 | DRG 292 ==
LOC: EMEROOARM 19:45 → 3BNU 19:45 → SUATTDRO 21:31 → 3BNU 22:18 → SUATTDRO 04-29 17:05
PROVIDERS: ADMIT Family Medicine; ATTEND Hospitalist

== ENCOUNTER 2019-01-20 16:26 | Inpatient (IN) ==
[2019-01-20] MEDS ORDERED: Ipratropium/Albuterol Neb 3 ML IH ONE (16:49)
[2019-01-20] MEDS ORDERED: methylPREDNISolone 125 MG/2 ML VIAL IVP ONE (16:49)
[2019-01-20] MEDS ORDERED: Nitroglycerin 0.4 MG TAB.SUBL SL PRN ×2 (16:50→20:02)
[2019-01-20] MEDS ORDERED: Aspirin 81 MG TAB.CHEW PO ONE (16:50)
[2019-01-20 17:30] LABS: Basophils # 0.1 K/mcL (0.0-0.2); Hematocrit 35.7 % (37.5-50.1); Hemoglobin 10.9 g/dL (12.9-16.9); Mean Corpuscular HGB Conc 30.5 g/dL (31.6-35.5); Mean Corpuscular Hemoglobin 25.5 pg (28.0-33.3); Mean Corpuscular Volume 83.6 fL (83.0-100.0); Mean Platelet Volume 9.2 fL (9.4-12.4); Platelet Count 194 K/mcL (140-400); Red Blood Count 4.27 M/mcL (4.19-5.50); Red Cell Distribution Width 23.8 % (11.5-14.5); White Blood Count 5.4 K/mcL (4.3-11.1)
[2019-01-20 17:52] LABS: BUN/Creatinine Ratio 18 (6-26); Blood Urea Nitrogen 22 mg/dL (8-23); Calcium 8.6 mg/dL (8.6-10.3); Carbon Dioxide 26 mEq/L (23-29); Chloride 105 mEq/L (98-107); Glucose 89 mg/dL (70-105); Osmolality,Calculated 289 (280-300); Potassium 4.2 mEq/L (3.5-5.1); Sodium 138 mEq/L (136-145); Troponin I < 0.03 ng/mL (< 0.04); eGFR For African Americans > 60 (> 60); eGFR For Non-African Americans 58 (> 60)
[2019-01-20 18:06] LABS: Eosinophils # 0.3 K/mcL (0.0-0.6); Lymphocytes # 0.7 K/mcL (0.6-4.6); Monocytes # 0.4 K/mcL (0.0-1.3); Neutrophils # 3.9 K/mcL (1.6-8.9); Reactive Lymphocytes Present (Not Present)
[2019-01-20 18:07] LABS: Anisocytosis 1+ (Not Present); Platelet Estimate Normal (Normal)
[2019-01-20] MEDS ORDERED: Furosemide 40 MG/4 ML VIAL IVP ONE (18:32)
[2019-01-20] MEDS ORDERED: Nitroglycerin 1 INCH/GM PACKET TP ONE (18:42)
[2019-01-20] MEDS ORDERED: Magic Mouthwash 10 ML UD Cup PO PRN (20:02)
[2019-01-20] MEDS ORDERED: GuaiFENesin Liq 200 MG/10 ML UDC PO PRN (20:05)
[2019-01-20] MEDS ORDERED: Isovue-370 500 ML BOTTLE IVP ONE (20:17)
[2019-01-20] MEDS ORDERED: rOPINIRole 1 MG TABLET PO SCH (21:15)
[2019-01-20] MEDS: *HR* Heparin 5,000 UNIT/ML VIAL SQ SCH (22:05)
[2019-01-21] MEDS: Ipratropium/Albuterol Neb 3 ML IH SCH ×6 (00:16→20:29)
[2019-01-21] MEDS: *HR* Heparin 5,000 UNIT/ML VIAL SQ SCH ×3 (05:47→20:20)
[2019-01-21] MEDS: Budesonide/Formoterol 160/4.5 1 PUFF INH IH SCH (07:35)
[2019-01-21] MEDS: predniSONE 20 MG TABLET PO SCH (08:57)
[2019-01-21] MEDS: Furosemide 40 MG/4 ML VIAL IVP SCH ×2 (08:58→17:39)
[2019-01-21] MEDS: Aspirin Enteric Coated 81 MG Tablet PO SCH (08:58)
[2019-01-21] MEDS ORDERED: rOPINIRole 1 MG TABLET PO SCH (09:00)
[2019-01-21] MEDS: Azithromycin 500 MG in D5% in Water 250 ML IVPB SCH (11:35)
[2019-01-21] MEDS: cefTRIAXone 1,000 MG in Water for inj. (sterile) 20 ML IVP SCH (11:37)
[2019-01-21] MEDS: rOPINIRole 1 MG TABLET PO SCH (20:20)
[2019-01-21] MEDS: Triamcinolone Acet 0.1% CRM 15 GM TUBE TP SCH (20:23)
[2019-01-22] MEDS: Ipratropium/Albuterol Neb 3 ML IH SCH ×6 (00:22→20:37)
[2019-01-22 01:15] LABS: Basophils % 0.1 %; Hemoglobin 9.9 g/dL (12.9-16.9); Immature Granulocytes % 0.6 % (0-4); Lymphocytes # 0.4 K/mcL (0.6-4.6); Lymphocytes % 3.2 %; Mean Corpuscular HGB Conc 31.9 g/dL (31.6-35.5); Mean Corpuscular Hemoglobin 25.7 pg (28.0-33.3); Mean Corpuscular Volume 80.5 fL (83.0-100.0); Mean Platelet Volume 9.9 fL (9.4-12.4); Monocytes # 0.6 K/mcL (0.0-1.3); Neutrophils # 10.8 K/mcL (1.6-8.9); Platelet Count 199 K/mcL (140-400); Red Blood Count 3.85 M/mcL (4.19-5.50); Segmented Neutrophils % 91.1 %
[2019-01-22 01:17] LABS: White Blood Count 11.8 K/mcL (4.3-11.1)
[2019-01-22 01:34] LABS: BUN/Creatinine Ratio 21 (6-26); Blood Urea Nitrogen 27 mg/dL (8-23); Calcium 8.6 mg/dL (8.6-10.3); Carbon Dioxide 33 mEq/L (23-29); Chloride 98 mEq/L (98-107); Glucose 122 mg/dL (70-105); Osmolality,Calculated 296 (280-300); Potassium 3.4 mEq/L (3.5-5.1); Sodium 140 mEq/L (136-145); eGFR For African Americans > 60 (> 60); eGFR For Non-African Americans 54 (> 60)
[2019-01-22] MEDS: *HR* Heparin 5,000 UNIT/ML VIAL SQ SCH ×3 (05:53→21:25)
[2019-01-22] MEDS: Budesonide/Formoterol 160/4.5 1 PUFF INH IH SCH (07:32)
[2019-01-22] MEDS: Furosemide 40 MG/4 ML VIAL IVP SCH (08:28)
[2019-01-22] MEDS: Aspirin Enteric Coated 81 MG Tablet PO SCH (08:28)
[2019-01-22] MEDS: rOPINIRole 1 MG TABLET PO SCH ×2 (08:28→21:24)
[2019-01-22] MEDS: predniSONE 20 MG TABLET PO SCH (08:28)
[2019-01-22] MEDS: Triamcinolone Acet 0.1% CRM 15 GM TUBE TP SCH ×2 (11:05→21:25)
[2019-01-22] MEDS: Azithromycin 500 MG in D5% in Water 250 ML IVPB SCH (11:07)
[2019-01-22] MEDS: cefTRIAXone 1,000 MG in Water for inj. (sterile) 20 ML IVP SCH (11:11)
[2019-01-22 12:05] LABS: Bilirubin,Urine Negative (Negative); Blood,Urine Negative (Negative); Clarity,Urine Clear (Clear); Color,Urine Yellow (Yellow); Glucose,Urine (UA) Normal (Normal); Ketones,Urine Negative (Negative); Leukocyte Esterase,Urine Negative (Negative); Nitrite,Urine Negative (Negative); PH,Urine 6.5 pH Units (5.0-8.0); Protein,Urine Negative (Neg-Trace); Specific Gravity,Urine 1.012 (1.010-1.025); Urobilinogen,Urine Normal (Normal)
[2019-01-23] MEDS: Ipratropium/Albuterol Neb 3 ML IH SCH ×4 (00:13→11:11)
[2019-01-23] MEDS: *HR* Heparin 5,000 UNIT/ML VIAL SQ SCH (06:33)
[2019-01-23 07:08] VITALS: BP 164/90
[2019-01-23] MEDS: Budesonide/Formoterol 160/4.5 1 PUFF INH IH SCH (07:32)
[2019-01-23] MEDS ORDERED: Furosemide 40 MG TABLET PO SCH (09:00)
[2019-01-23] MEDS: rOPINIRole 1 MG TABLET PO SCH (09:51)
[2019-01-23] MEDS: Aspirin Enteric Coated 81 MG Tablet PO SCH (09:51)
[2019-01-23] MEDS: predniSONE 20 MG TABLET PO SCH (09:51)
[2019-01-23] MEDS ORDERED: Azithromycin 250 MG TABLET PO SCH (10:30)
[2019-01-23] MEDS ORDERED: Cefdinir 300 MG CAPSULE PO SCH (21:00)
== END 2019-01-23 14:27 | disposition home or self-care (01) | DRG 291 ==
LOC: 3BNU 16:26 → EMEROOARM 16:26 → 3BNU 20:23
PROVIDERS: ADMIT Internal Medicine; ATTEND Internal Medicine

== ENCOUNTER 2019-02-02 00:34 | Observation (INO) ==
[2019-02-02 01:12] LABS: Basophils % 0.1 %; Eosinophils # 0.3 K/mcL (0.0-0.6); Eosinophils % 3.2 %; Hematocrit 36.2 % (37.5-50.1); Hemoglobin 11.2 g/dL (12.9-16.9); Immature Granulocytes % 0.6 % (0-4); Lymphocytes # 0.7 K/mcL (0.6-4.6); Lymphocytes % 8.4 %; Mean Corpuscular HGB Conc 30.9 g/dL (31.6-35.5); Mean Corpuscular Hemoglobin 25.6 pg (28.0-33.3); Mean Corpuscular Volume 82.6 fL (83.0-100.0); Mean Platelet Volume 9.2 fL (9.4-12.4); Monocytes # 0.7 K/mcL (0.0-1.3); Neutrophils # 6.8 K/mcL (1.6-8.9); Platelet Count 239 K/mcL (140-400); Red Blood Count 4.38 M/mcL (4.19-5.50); Red Cell Distribution Width 22.7 % (11.5-14.5); Segmented Neutrophils % 79.7 %; White Blood Count 8.5 K/mcL (4.3-11.1)
[2019-02-02 01:36] LABS: Alanine Aminotransferase 24 Units/L (7-52); Albumin 3.5 g/dL (3.5-5.7); Albumin/Globulin Ratio 1.1 (1.1-2.2); Alkaline Phosphatase 122 Units/L (34-104); Aspartate Amino Transferase 24 Units/L (13-39); BUN/Creatinine Ratio 23 (6-26); Bilirubin,Total 0.9 mg/dL (0.3-1.0); Blood Urea Nitrogen 27 mg/dL (8-23); Calcium 8.4 mg/dL (8.6-10.3); Carbon Dioxide 31 mEq/L (23-29); Chloride 101 mEq/L (98-107); Globulin 3.1 g/dL (2.4-3.5); Glucose 96 mg/dL (70-105); Osmolality,Calculated 295 (280-300); Potassium 4.3 mEq/L (3.5-5.1); Sodium 140 mEq/L (136-145); Total Protein 6.6 g/dL (6.4-8.9); eGFR For African Americans > 60 (> 60); eGFR For Non-African Americans > 60 (> 60)
[2019-02-02] MEDS ORDERED: Furosemide 40 MG/4 ML VIAL IVP ONE (02:39)
[2019-02-02] MEDS ORDERED: Aspirin 81 MG TAB.CHEW PO ONE (02:39)
[2019-02-02] MEDS ORDERED: Naloxone 0.4 MG/ML INJ IVP PRN (05:36)
[2019-02-02] MEDS ORDERED: Ipratropium/Albuterol Neb 3 ML IH PRN (05:41)
[2019-02-02] MEDS: *HR* Heparin 5,000 UNIT/ML VIAL SQ SCH ×2 (06:13→17:51)
[2019-02-02] MEDS: Furosemide 40 MG/4 ML VIAL IVP SCH ×2 (09:35→17:50)
[2019-02-02] MEDS ORDERED: Benzonatate 100 MG CAPSULE PO PRN (17:53)
[2019-02-03 04:26] LABS: Basophils % 0.4 %; Eosinophils # 0.2 K/mcL (0.0-0.6); Eosinophils % 3.1 %; Hematocrit 35.6 % (37.5-50.1); Hemoglobin 11.7 g/dL (12.9-16.9); Immature Granulocytes % 0.4 % (0-4); Lymphocytes # 0.7 K/mcL (0.6-4.6); Lymphocytes % 8.8 %; Mean Corpuscular HGB Conc 32.9 g/dL (31.6-35.5); Mean Corpuscular Volume 79.1 fL (83.0-100.0); Mean Platelet Volume 9.3 fL (9.4-12.4); Monocytes % 12.2 %; Neutrophils # 5.9 K/mcL (1.6-8.9); Platelet Count 250 K/mcL (140-400); Red Cell Distribution Width 22.4 % (11.5-14.5); Segmented Neutrophils % 75.1 %; White Blood Count 7.8 K/mcL (4.3-11.1)
[2019-02-03 04:43] LABS: Alanine Aminotransferase 20 Units/L (7-52); Albumin 3.5 g/dL (3.5-5.7); Albumin/Globulin Ratio 1.2 (1.1-2.2); Alkaline Phosphatase 129 Units/L (34-104); Aspartate Amino Transferase 20 Units/L (13-39); BUN/Creatinine Ratio 24 (6-26); Blood Urea Nitrogen 28 mg/dL (8-23); Calcium 8.7 mg/dL (8.6-10.3); Carbon Dioxide 31 mEq/L (23-29); Chloride 97 mEq/L (98-107); Glucose 96 mg/dL (70-105); Osmolality,Calculated 291 (280-300); Potassium 3.5 mEq/L (3.5-5.1); Sodium 138 mEq/L (136-145); Total Protein 6.5 g/dL (6.4-8.9); eGFR For African Americans > 60 (> 60); eGFR For Non-African Americans > 60 (> 60)
[2019-02-03] MEDS: *HR* Heparin 5,000 UNIT/ML VIAL SQ SCH ×2 (05:51→18:11)
[2019-02-03] MEDS ORDERED: Budesonide/Formoterol 160/4.5 1 PUFF INH IH SCH (09:00)
[2019-02-03] MEDS: Aspirin Enteric Coated 81 MG Tablet PO SCH (09:12)
[2019-02-03] MEDS: Furosemide 40 MG/4 ML VIAL IVP SCH (09:12)
[2019-02-03] MEDS ORDERED: Perflutren Lipid Microsphere 1.3 ML in 0.9 % Sodium Chloride 8.7 ML IVP ONE (16:50)
[2019-02-03] MEDS: Furosemide 20 MG/2 ML VIAL IVP SCH (18:12)
[2019-02-03] MEDS: Budesonide/Formoterol 160/4.5 1 PUFF INH IH SCH (20:04)
[2019-02-03] MEDS ORDERED: rOPINIRole 1 MG TABLET PO SCH (21:00)
[2019-02-04 05:07] LABS: Calcium 8.6 mg/dL (8.6-10.3)
[2019-02-04] MEDS: *HR* Heparin 5,000 UNIT/ML VIAL SQ SCH (05:26)
[2019-02-04] MEDS: Budesonide/Formoterol 160/4.5 1 PUFF INH IH SCH (07:46)
[2019-02-04 08:27] VITALS: BP 109/68
[2019-02-04] MEDS: Furosemide 20 MG/2 ML VIAL IVP SCH (09:57)
[2019-02-04] MEDS: Aspirin Enteric Coated 81 MG Tablet PO SCH (09:58)
== END 2019-02-04 13:49 | disposition home health service (06) ==
LOC: EMEROOARM 00:34 → 2ANU 00:34 → SUATTDRO 03:47 → 2ANU 04:01
PROVIDERS: ADMIT Family Medicine; ATTEND Pharmacist

== ENCOUNTER 2019-03-09 01:58 | Inpatient (IN) ==
[2019-03-09 02:37] LABS: Basophils # 0.1 K/mcL (0.0-0.2); Basophils % 1.1 %; Eosinophils # 0.2 K/mcL (0.0-0.6); Eosinophils % 3.3 %; Hematocrit 36.2 % (37.5-50.1); Hemoglobin 11.1 g/dL (12.9-16.9); Immature Granulocytes % 0.3 % (0-4); Lymphocytes # 0.5 K/mcL (0.6-4.6); Lymphocytes % 7.6 %; Mean Corpuscular HGB Conc 30.7 g/dL (31.6-35.5); Mean Corpuscular Hemoglobin 26.5 pg (28.0-33.3); Mean Platelet Volume 8.8 fL (9.4-12.4); Monocytes # 0.6 K/mcL (0.0-1.3); Neutrophils # 5.5 K/mcL (1.6-8.9); Platelet Count 286 K/mcL (140-400); Red Blood Count 4.19 M/mcL (4.19-5.50); Red Cell Distribution Width 22.2 % (11.5-14.5); Segmented Neutrophils % 78.7 %
[2019-03-09 02:39] LABS: Mean Corpuscular Volume 86.4 fL (83.0-100.0)
[2019-03-09 02:42] LABS: INR 1.1
[2019-03-09 02:57] LABS: BUN/Creatinine Ratio 16 (6-26); Blood Urea Nitrogen 21 mg/dL (8-23); Calcium 9.1 mg/dL (8.6-10.3); Carbon Dioxide 28 mEq/L (23-29); Chloride 101 mEq/L (98-107); Glucose 134 mg/dL (70-105); Osmolality,Calculated 297 (280-300); Potassium 4.6 mEq/L (3.5-5.1); Sodium 141 mEq/L (136-145); Troponin I < 0.03 ng/mL (< 0.04); eGFR For African Americans > 60 (> 60); eGFR For Non-African Americans 55 (> 60)
[2019-03-09] MEDS ORDERED: Furosemide 20 MG/2 ML VIAL IVP ONE (03:36)
[2019-03-09] MEDS ORDERED: Furosemide 40 MG/4 ML VIAL IVP ONE (07:13)
[2019-03-09] MEDS ORDERED: Naloxone 0.4 MG/ML INJ IVP PRN (07:14)
[2019-03-09] MEDS ORDERED: Ondansetron 4 MG/2 ML VIAL IVP PRN (07:14)
[2019-03-09] MEDS ORDERED: Furosemide 20 MG/2 ML VIAL IVP SCH (08:00)
[2019-03-09] MEDS: Aspirin Enteric Coated 81 MG Tablet PO SCH (08:00)
[2019-03-09] MEDS: carvediloL 6.25 MG TABLET PO SCH ×2 (08:00→16:31)
[2019-03-09] MEDS ORDERED: Budesonide/Formoterol 160/4.5 1 PUFF INH IH SCH (10:00)
[2019-03-09] MEDS: Budesonide/Formoterol 160/4.5 1 PUFF INH IH SCH ×2 (10:44→22:29)
[2019-03-09] MEDS: *HR* Heparin 5,000 UNIT/ML VIAL SQ SCH (16:31)
[2019-03-10] MEDS: *HR* Heparin 5,000 UNIT/ML VIAL SQ SCH ×2 (05:07→16:47)
[2019-03-10] MEDS: Budesonide/Formoterol 160/4.5 1 PUFF INH IH SCH ×2 (07:35→21:50)
[2019-03-10] MEDS: Furosemide 40 MG/4 ML VIAL IVP SCH ×2 (08:27→08:28)
[2019-03-10] MEDS: carvediloL 6.25 MG TABLET PO SCH ×2 (08:27→16:47)
[2019-03-10] MEDS: Aspirin Enteric Coated 81 MG Tablet PO SCH (08:28)
[2019-03-10 09:39] LABS: Basophils # 0.1 K/mcL (0.0-0.2); Eosinophils # 0.2 K/mcL (0.0-0.6); Hematocrit 36.4 % (37.5-50.1); Hemoglobin 11.4 g/dL (12.9-16.9); Immature Granulocytes % 0.5 % (0-4); Lymphocytes # 0.5 K/mcL (0.6-4.6); Lymphocytes % 8.7 %; Mean Corpuscular HGB Conc 31.3 g/dL (31.6-35.5); Mean Corpuscular Hemoglobin 26.7 pg (28.0-33.3); Mean Corpuscular Volume 85.2 fL (83.0-100.0); Mean Platelet Volume 8.5 fL (9.4-12.4); Monocytes # 0.6 K/mcL (0.0-1.3); Monocytes % 9.2 %; Neutrophils # 4.6 K/mcL (1.6-8.9); Platelet Count 269 K/mcL (140-400); Red Blood Count 4.27 M/mcL (4.19-5.50); Red Cell Distribution Width 21.5 % (11.5-14.5); Segmented Neutrophils % 76.6 %; White Blood Count 6.1 K/mcL (4.3-11.1)
[2019-03-10 10:06] LABS: BUN/Creatinine Ratio 19 (6-26); Blood Urea Nitrogen 24 mg/dL (8-23); Calcium 9.5 mg/dL (8.6-10.3); Carbon Dioxide 31 mEq/L (23-29); Chloride 101 mEq/L (98-107); Glucose 128 mg/dL (70-105); Osmolality,Calculated 298 (280-300); Potassium 3.7 mEq/L (3.5-5.1); Sodium 141 mEq/L (136-145); eGFR For African Americans > 60 (> 60); eGFR For Non-African Americans 55 (> 60)
[2019-03-10] MEDS: MethylPREDNISolone 40 MG/ML VIAL IVP SCH ×2 (12:22→16:54)
[2019-03-10] MEDS: Furosemide 20 MG/2 ML VIAL IVP SCH (16:47)
[2019-03-10] MEDS ORDERED: Furosemide 20 MG/2 ML VIAL IVP SCH (17:00)
[2019-03-10] MEDS: Ipratropium/Albuterol Neb 3 ML IH PRN (21:55)
[2019-03-11 04:34] LABS: Hematocrit 32.4 % (37.5-50.1); Hemoglobin 10.2 g/dL (12.9-16.9); Immature Platelets 1.9 % (1.1-6.1); Mean Corpuscular HGB Conc 31.5 g/dL (31.6-35.5); Mean Corpuscular Volume 85.7 fL (83.0-100.0); Mean Platelet Volume 8.9 fL (9.4-12.4); Red Blood Count 3.78 M/mcL (4.19-5.50); Red Cell Distribution Width 21.1 % (11.5-14.5); White Blood Count 5.8 K/mcL (4.3-11.1)
[2019-03-11] MEDS: MethylPREDNISolone 40 MG/ML VIAL IVP SCH (05:53)
[2019-03-11] MEDS: *HR* Heparin 5,000 UNIT/ML VIAL SQ SCH ×2 (05:53→16:31)
[2019-03-11 06:33] LABS: Calcium 8.7 mg/dL (8.6-10.3); Potassium 3.7 mEq/L (3.5-5.1)
[2019-03-11] MEDS: Budesonide/Formoterol 160/4.5 1 PUFF INH IH SCH ×2 (07:43→21:53)
[2019-03-11] MEDS: Aspirin Enteric Coated 81 MG Tablet PO SCH (08:06)
[2019-03-11] MEDS: Furosemide 20 MG/2 ML VIAL IVP SCH (08:07)
[2019-03-11] MEDS: carvediloL 6.25 MG TABLET PO SCH ×2 (08:07→16:29)
[2019-03-11] MEDS: Ipratropium/Albuterol Neb 3 ML IH PRN (21:53)
[2019-03-12] MEDS: *HR* Heparin 5,000 UNIT/ML VIAL SQ SCH ×2 (05:45→16:51)
[2019-03-12 06:15] LABS: Blood Urea Nitrogen 39 mg/dL (8-23); Calcium 9.1 mg/dL (8.6-10.3); Chloride 99 mEq/L (98-107); Glucose 91 mg/dL (70-105); Osmolality,Calculated 297 (280-300); Potassium 3.8 mEq/L (3.5-5.1); Sodium 139 mEq/L (136-145)
[2019-03-12] MEDS ORDERED: Fluticasone Propionate Nasal 50 MCG/SPRAY BOTTLE NS PRN (07:30)
[2019-03-12] MEDS ORDERED: MethylPREDNISolone 40 MG/ML VIAL IVP SCH (09:00)
[2019-03-12 09:02] LABS: BUN/Creatinine Ratio 29 (6-26); Carbon Dioxide 29 mEq/L (23-29); eGFR For African Americans > 60 (> 60); eGFR For Non-African Americans 52 (> 60)
[2019-03-12] MEDS: Aspirin Enteric Coated 81 MG Tablet PO SCH (09:08)
[2019-03-12] MEDS: Furosemide 40 MG TABLET PO SCH (09:08)
[2019-03-12] MEDS: predniSONE 20 MG TABLET PO SCH (09:08)
[2019-03-12] MEDS: carvediloL 6.25 MG TABLET PO SCH ×2 (09:08→16:50)
[2019-03-12] MEDS: Budesonide/Formoterol 160/4.5 1 PUFF INH IH SCH ×2 (09:57→19:47)
[2019-03-12] MEDS: Ipratropium/Albuterol Neb 3 ML IH PRN ×2 (09:57→19:48)
[2019-03-12] MEDS ORDERED: Melatonin 3 MG TABLET PO SCH (21:00)
[2019-03-13] MEDS: *HR* Heparin 5,000 UNIT/ML VIAL SQ SCH (05:35)
[2019-03-13] MEDS: Budesonide/Formoterol 160/4.5 1 PUFF INH IH SCH (07:41)
[2019-03-13 07:46] VITALS: BP 138/73
[2019-03-13] MEDS: Aspirin Enteric Coated 81 MG Tablet PO SCH (08:10)
[2019-03-13] MEDS: Furosemide 40 MG TABLET PO SCH (08:11)
[2019-03-13] MEDS: carvediloL 6.25 MG TABLET PO SCH (08:11)
[2019-03-13] MEDS: predniSONE 20 MG TABLET PO SCH (08:11)
== END 2019-03-13 10:53 | DRG 291 ==
LOC: EMEROOARM 01:58 → 2ANU 01:58 → SUATTDRO 05:50 → 2ANU 06:35 → SUATTDRO 03-10 11:30
PROVIDERS: ADMIT Internal Medicine; ATTEND Internal Medicine